=== PATIENT | female | born 1955 | race Caucasian/White ===

== ENCOUNTER 2017-05-10 22:14 | Emergency (ER) | payer OTHER ==
[2017-05-10 22:28] VITALS: RESP 18
[2017-05-10] MEDS ORDERED: ENALAPRILAT 1.25 MG/ML 1 ML VIAL IVP STA (23:31)
[2017-05-10] MEDS ORDERED: SODIUM CHLORIDE 0.9% 1,000 ML IV STA (23:31)
--- NOTE | 2017-05-10 23:49 | ED ---
Recheck HPI - General Chief Complaint: Recheck/Abnormal Lab/Rx Stated Complaint: HYPERTENSION Time Seen by Provider: 05/10/17 22:55 Source: patient, RN notes reviewed Mode of arrival: ambulatory Limitations: no limitations - History of Present Illness Initial Comments: 62-year-old female presents emergency Department chief complaint of hypertension. Patient states that she suffers from high blood pressure. She denies that her blood pressure type pain that concerns her. Patient states she is dull ache at the top of her head. Patient states been continuous throughout the day just gradually started and it concerned her and with her blood pressure she became more concerned. Patient states she's had no nausea vomiting. Patient denies any fever or chills. Patient states she has had a history of high blood pressure before. Patient states that she normally takes MEDICATION does not have any issues. They're concerned due to the blood pressure reading she was seen at home so she thought that they should be evaluated.Patient denies any recent fever, chills, shortness of breath, chest pain, back pain, abdominal pain, nausea vomiting, numbness or tingling, dysuria or hematuria, constipation or diarrhea, headaches or visual changes, or any other current symptoms. - Related Data Home Medications Medication Instructions Recorded Confirmed Bisoprolol-Hctz 10-6.25 mg [Ziac 1 tab PO DAILY 05/10/17 05/10/17 10-6.25] Calcium Carbonate [Calcium] 600 mg PO DAILY 05/10/17 05/10/17 L.acidoph,Paracasei, B.lactis 1 cap PO DAILY 05/10/17 05/10/17 [Probiotic] Multivitamins, Thera [Multivitamin 1 tab PO DAILY 05/10/17 05/10/17 (formulary)] Sertraline [Zoloft] 100 mg PO DAILY 05/10/17 05/10/17 Allergies Allergy/AdvReac Type Severity Reaction Status Date / Time No Known Allergies Allergy Verified 05/10/17 23:08 Review of Systems ROS Statement: Those systems with pertinent positive or pertinent negative responses have been documented in the HPI. ROS Other: All systems not noted in ROS Statement are negative. Past Medical History Past Medical History: Hypertension History of Any Multi-Drug Resistant Organisms: None Reported Past Surgical History: Tubal Ligation Past Psychological History: Anxiety, Depression Smoking Status: Never smoker Past Alcohol Use History: None Reported Past Drug Use History: None Reported General Exam - General Exam Comments Initial Comments: General: The patient is awake and alert, in no distress, and does not appear acutely ill. Eye: Pupils are equal, round and reactive to light, extra-ocular movements are intact; there is normal conjunctiva bilaterally. No signs of icterus. Ears, nose, mouth and throat: There are moist mucous membranes and no oral lesions. Neck: The neck is supple, there is no tenderness. Cardiovascular: There is a regular rate and rhythm. No murmur, rub or gallop is appreciated. Respiratory: Lungs are clear to auscultation, respirations are non-labored, breath sounds are equal. No wheezes, stridor, rales, or rhonchi. Gastrointestinal: Soft, non-distended, non-tender abdomen without masses or organomegaly noted. There is no rebound or guarding present. No CVA tenderness. Bowel sounds are unremarkable. Back: There is no tenderness to palpation in the midline. There is no obvious deformity. No rashes noted. Musculoskeletal: Normal ROM, no tenderness, There is no pedal edema. There is no calf tenderness or swelling. Sensation intact. Pulses equal bilaterally 2+. Neurological: CN II-XII intact, There are no obvious motor or sensory deficits. Coordination appears grossly intact. Speech is normal. Skin: Skin is warm and dry and no rashes or lesions are noted. Psychiatric: Cooperative, appropriate mood & affect, normal judgment. Limitations: no limitations Course Vital Signs 05/10/17 05/10/17 05/10/17 22:23 23:14 23:46 Temperature 99.9 F H Pulse Rate 68 65 64 Respiratory 18 18 18 Rate Blood Pressure 179/85 190/90 171/79 O2 Sat by Pulse 99 100 96 Oximetry 05/11/17 00:36 Temperature Pulse Rate 65 Respiratory 18 Rate Blood Pressure 172/87 O2 Sat by Pulse 96 Oximetry Medical Decision Making - Medical Decision Making 62-year-old female presents emergency department with chief complaint of hypertension with headache. At this time patient's further history is seemed that there was a history of may be hydrocephalus in the past however she never followed up on it she never had a retention any symptoms with it. At this time due to the patient's CAT scan findings fact that she has no neurologist we discussed that we would like her to be evaluated by neurosurgery. We discussed we will transfer to the [facility] we did test the case with them and they do agree to transfer. We will chest the patient for further evaluation. Patient is in agreement with the plan. - Lab Data Result diagrams: 05/10/17 23:45 05/10/17 23:45 Lab Results 05/10/17 05/10/17 05/10/17 Range/Units 23:45 23:45 23:45 WBC 16.4 H (3.8-10.6) k/uL RBC 4.54 (3.80-5.40) m/uL Hgb 14.2 (11.4-16.0) gm/dL Hct 38.0 (34.0-46.0) % MCV 83.8 (80.0-100.0) fL MCH 31.3 (25.0-35.0) pg MCHC 37.3 H (31.0-37.0) g/dL RDW 13.5 (11.5-15.5) % Plt Count 215 (150-450) k/uL Neutrophils % 83 % Lymphocytes % 12 % Monocytes % 3 % Eosinophils % 1 % Basophils % 0 % Neutrophils # 13.6 H (1.3-7.7) k/uL Lymphocytes # 2.0 (1.0-4.8) k/uL Monocytes # 0.6 (0-1.0) k/uL Eosinophils # 0.1 (0-0.7) k/uL Basophils # 0.0 (0-0.2) k/uL Sodium 141 (137-145) mmol/L Potassium 3.5 (3.5-5.1) mmol/L Chloride 102 (98-107) mmol/L Carbon Dioxide 25 (22-30) mmol/L Anion Gap 14 mmol/L BUN 15 (7-17) mg/dL Creatinine 0.90 (0.52-1.04) mg/dL Est GFR (MDRD) Af Amer >60 (>60 ml/min/1.73 sqM) Est GFR (MDRD) Non-Af >60 (>60 ml/min/1.73 sqM) Glucose 128 H (74-99) mg/dL Calcium 9.5 (8.4-10.2) mg/dL Total Bilirubin 0.4 (0.2-1.3) mg/dL AST 18 (14-36) U/L ALT 31 (9-52) U/L Alkaline Phosphatase 68 (38-126) U/L Total Protein 6.3 (6.3-8.2) g/dL Albumin 4.1 (3.5-5.0) g/dL Urine Color Yellow Urine Appearance Turbid H (Clear) Urine pH 8.0 (5.0-8.0) Ur Specific [place] 1.015 (1.001-1.035) Urine Protein Negative (Negative) Urine Glucose (UA) Negative (Negative) Urine Ketones Negative (Negative) Urine Blood Negative (Negative) Urine Nitrite Negative (Negative) Urine Bilirubin Negative (Negative) Urine Urobilinogen <2.0 (<2.0) mg/dL Ur Leukocyte Esterase Small H (Negative) Urine WBC 5 (0-5) /hpf Urine WBC Clumps Rare H (None) /hpf Ur Squamous Epith Cells 1 (0-4) /hpf Amorphous Sediment Moderate H (None) /hpf Urine Mucus Rare H (None) /hpf - Radiology Data Radiology results: report reviewed, image reviewed Disposition Clinical Impression: Hydrocephalus in adult, Hypertension Disposition: OTHER INSTITUTION NOT DEFINED Referrals: Michel Peres MD [Primary Care Provider] - 1-2 days Time of Disposition: 00:59 - Out of Hospital Transfer - Req. Specs Out of Hospital Transfer - Requested Specifics: Other Emergency Center ([facility])
[2017-05-11 00:05] LABS: Basophils % (A) 0 %; CH 30.3; CHCM 36.4; Eosinophils # (A) 0.1 k/uL (0-0.7); Eosinophils % (A) 1 %; HDW 2.83; HGB 14.2 gm/dL (11.4-16.0); Luc # (Auto) 0.15; Luc % (Auto) 1; Lymphocytes % (A) 12 %; MCH 31.3 pg (25.0-35.0); MCHC 37.3 g/dL (31.0-37.0); MCV 83.8 fL (80.0-100.0); Mean Platelet Volume 7.9; Monocytes # (A) 0.6 k/uL (0-1.0); Monocytes % (A) 3 %; Neutrophils # (A) 13.6 k/uL (1.3-7.7); Neutrophils % (A) 83 %; RBC 4.54 m/uL (3.80-5.40); RDW 13.5 % (11.5-15.5); WBC 16.4 k/uL (3.8-10.6); WBC (Perox) 15.29
[2017-05-11 00:13] LABS: Amorphous Sediment,Urine Moderate /hpf; Appearance,Urine Turbid (Clear); Bilirubin,Urine Negative (Negative); Glucose,Urine (UA) Negative (Negative); Ketones,Urine Negative (Negative); Leukocyte Esterase,Urine Small (Negative); Mucus,Urine Rare /hpf; Nitrite,Urine Negative (Negative); Particle Count 9494; Protein,Urine Negative (Negative); Specific Gravity,Urine 1.015 (1.001-1.035); Squamous Epithelial Cell,Urine 1 /hpf (0-4); UA Billing (MACRO vs. MICRO) MICRO; Urobilinogen,Urine <2.0 mg/dL (<2.0); WBC,Urine 5 /hpf (0-5)
[2017-05-11 00:22] LABS: ALT 31 U/L (9-52); AST 18 U/L (14-36); Alkaline Phosphatase 68 U/L (38-126); Anion Gap 14 mmol/L; Blood Urea Nitrogen 15 mg/dL (7-17); Calcium 9.5 mg/dL (8.4-10.2); Carbon Dioxide 25 mmol/L (22-30); Chloride 102 mmol/L (98-107); Glucose 128 mg/dL (74-99); Non-African American GFR(MDRD) >60 (>60 ml/min/1.73 sqM); Potassium 3.5 mmol/L (3.5-5.1); Sodium 141 mmol/L (137-145); Total Bilirubin 0.4 mg/dL (0.2-1.3); Total Protein 6.3 g/dL (6.3-8.2)
--- NOTE | 2017-05-11 00:25 | CT ---
EXAM: CT Head Without Intravenous Contrast CLINICAL HISTORY: Reason: Pain TECHNIQUE: Axial computed tomography images of the head/brain without intravenous contrast. CTDI is 57.40 mGy and DLP is 97 8.20 mGy-cm. This CT exam was performed using one or more of the following dose reduction techniques: automated exposure control, adjustment of the mA and/or kV according to patient size, and/or use of iterative reconstruction technique. COMPARISON: None. FINDINGS: Brain: Effacement of the sulci secondary to the below mentioned findings. No hemorrhage. No significant white matter disease. No edema. Ventricles: Mild/moderate enlargement of the bilateral lateral ventricles and third ventricle with periventricular hypodensities. Constellation of findings are suggestive of hydrocephalus with mild transependymal leakage of CSF. Bones/joints: Unremarkable. No acute fracture. Soft tissues: Unremarkable. Sinuses: Unremarkable as visualized. No acute sinusitis. Mastoid air cells: Unremarkable as visualized. No mastoid effusion. IMPRESSION: Mild/moderate enlargement of the bilateral lateral ventricles and third ventricle with periventricular hypodensities and effacement of the cortical sulci. Constellation of findings are suggestive of hydrocephalus with mild transependymal leakage of CSF. MRI of the brain is recommended for further evaluation.
[2017-05-11 01:29] VITALS: BP 193/90; PULSE 70; TEMP 98
== END 2017-05-11 01:33 | disposition short-term general hospital (02) ==
LOC: EC 22:14
DX: G91.9 Hydrocephalus, unspecified (principal); I10 Essential (primary) hypertension; F32.9 Major depressive disorder, single episode, unspecified; Z79.899 Other long term (current) drug therapy
CPT/HCPCS: 36415; 70450; 80053; 81001; 85025; 96361; 96374; 99284

== ENCOUNTER → 2017-06-21 | Outpatient (CLI) | payer OTHER ==
--- NOTE | 2017-06-21 12:48 | XR ---
EXAMINATION TYPE: XR Hip Complete LT DATE OF EXAM: 06/21/2017 CLINICAL HISTORY: pain TECHNIQUE: AP and frogleg views of the left hip are obtained. COMPARISON: None. FINDINGS: There is no acute fracture/dislocation evident. The joint space appears within normal li mits. The overlying soft tissue appears unremarkable. IMPRESSION: 1. There is no acute fracture or dislocation.ICD 10 NO FRACTURE, INITIAL EVALUATION
--- NOTE | 2017-06-21 12:50 | XR ---
EXAMINATION TYPE: XR lumbar spine 2 or 3V DATE OF EXAM: 06/21/2017 CLINICAL HISTORY: pain TECHNIQUE: Three views of the lumbar spine are submitted. COMPARISON: None. FINDINGS: There are 5 lumbar type vertebral bodies identified. The lumbar spine shows satisfactory alignment w ithout evidence of acute fracture or dislocation. Vertebral body heights are within normal limits. Mild degenerative disc space narrowing. The overlying soft tissue appears unremarkable. IMPRESSION: No acute fracture or dislocation is seen in the lumbar spine. ICD 10 NO FRACTURE, INITIAL EVALUATION
== END | disposition home or self-care (01) ==
LOC: RADXRMAIN 12:15
PROVIDERS: ATTEND Family Medicine
DX: M25.552 Pain in left hip (principal); M54.5 Low back pain; M54.32 Sciatica, left side
CPT/HCPCS: 72100; 73502

== ENCOUNTER 2018-09-01 21:19 | Emergency (ER) | payer MEDICARE, OTHER ==
[2018-09-01 21:24] VITALS: RESP 18
[2018-09-01] MEDS ORDERED: SODIUM CHLORIDE 0.9% 1,000 ML IV STA (22:07)
--- NOTE | 2018-09-01 22:29 | ED ---
Neuro HPI - General Chief Complaint: Neuro Symptoms/Deficit Stated Complaint: left hand tingling Time Seen by Provider: 09/01/18 21:45 Source: patient, RN notes reviewed Mode of arrival: ambulatory Limitations: no limitations - History of Present Illness Is the patient presenting with stroke symptoms?: No Initial Comments: This is a 63-year-old female who presents with complaints of the onset around 2100 hrs. tonight of left arm and hand numbness and no weakness noted fevers chills nausea vomiting sweats no prior history of strokes she'll say she had somewhat of a headache. Modifying factors at this time - Related Data Home Medications: Home Medications Medication Instructions Recorded Confirmed Bisoprolol-Hctz 10-6.25 mg [Ziac 1 tab PO DAILY 05/10/17 05/10/17 10-6.25] Calcium Carbonate [Calcium] 600 mg PO DAILY 05/10/17 05/10/17 L.acidoph,Paracasei, B.lactis 1 cap PO DAILY 05/10/17 05/10/17 [Probiotic] Multivitamins, Thera [Multivitamin 1 tab PO DAILY 05/10/17 05/10/17 (formulary)] Sertraline [Zoloft] 100 mg PO DAILY 05/10/17 05/10/17 Previous Rx's Medication Instructions Recorded Sertraline [Zoloft] 100 mg PO DAILY #90 tab 09/02/18 Allergies/Adverse Reactions: Allergies Allergy/AdvReac Type Severity Reaction Status Date / Time No Known Allergies Allergy Verified 09/01/18 21:24 Review of Systems ROS Statement: Those systems with pertinent positive or pertinent negative responses have been documented in the HPI. ROS Other: All systems not noted in ROS Statement are negative. General Exam - General Exam Comments Initial Comments: This is a well-developed well-nourished awake alert oriented 3 female Limitations: no limitations General appearance: alert, in no apparent distress Head exam: Present: atraumatic, normocephalic, normal inspection Eye exam: Present: normal appearance, PERRL, EOMI. Absent: scleral icterus, conjunctival injection, periorbital swelling ENT exam: Present: normal exam, mucous membranes moist Neck exam: Present: normal inspection. Absent: tenderness, meningismus, lymphadenopathy Respiratory exam: Present: normal lung sounds bilaterally. Absent: respiratory distress, wheezes, rales, rhonchi, stridor Cardiovascular Exam: Present: regular rate, normal rhythm, normal heart sounds. Absent: systolic murmur, diastolic murmur, rubs, gallop, clicks GI/Abdominal exam: Present: soft, normal bowel sounds. Absent: distended, tenderness, guarding, rebound, rigid Extremities exam: Present: normal inspection, full ROM, normal capillary refill. Absent: tenderness, pedal edema, joint swelling, calf tenderness Back exam: Present: normal inspection Neurological exam: Present: alert, oriented X3, CN II-XII intact, motor sensory deficit (Some equivocal sensory loss to light touch over the left hand dorsal aspect and left upper extremity compared to the right no motor deficits no vascular deficits.), reflexes normal Psychiatric exam: Present: normal affect, normal mood Skin exam: Present: warm, dry, intact, normal color. Absent: rash Stroke MDM - Lab Data Result diagrams: 09/01/18 21:55 09/01/18 21:55 Lab Results 09/01/18 09/01/18 09/01/18 Range/Units 21:55 21:55 21:55 WBC 7.3 (3.8-10.6) k/uL RBC 4.99 (3.80-5.40) m/uL Hgb 14.4 (11.4-16.0) gm/dL Hct 42.8 (34.0-46.0) % MCV 85.8 (80.0-100.0) fL MCH 28.9 (25.0-35.0) pg MCHC 33.7 (31.0-37.0) g/dL RDW 13.4 (11.5-15.5) % Plt Count 237 (150-450) k/uL Neutrophils % 64 % Lymphocytes % 29 % Monocytes % 4 % Eosinophils % 1 % Basophils % 0 % Neutrophils # 4.7 (1.3-7.7) k/uL Lymphocytes # 2.1 (1.0-4.8) k/uL Monocytes # 0.3 (0-1.0) k/uL Eosinophils # 0.1 (0-0.7) k/uL Basophils # 0.0 (0-0.2) k/uL PT (9.0-12.0) sec INR (<1.2) APTT (22.0-30.0) sec Sodium 141 (137-145) mmol/L Potassium 4.1 (3.5-5.1) mmol/L Chloride 104 (98-107) mmol/L Carbon Dioxide 28 (22-30) mmol/L Anion Gap 9 mmol/L BUN 13 (7-17) mg/dL Creatinine 0.78 (0.52-1.04) mg/dL Est GFR (CKD-EPI)AfAm >90 (>60 ml/min/1.73 sqM) Est GFR (CKD-EPI)NonAf 80 (>60 ml/min/1.73 sqM) Glucose 133 H (74-99) mg/dL Calcium 9.8 (8.4-10.2) mg/dL Magnesium 2.1 (1.6-2.3) mg/dL Total Bilirubin 0.3 (0.2-1.3) mg/dL AST 16 (14-36) U/L ALT 18 (9-52) U/L Alkaline Phosphatase 58 (38-126) U/L Total Creatine Kinase 26 L (30-135) U/L CK-MB (CK-2) 0.5 (0.0-2.4) ng/mL CK-MB (CK-2) Rel Index 1.9 Troponin I <0.012 (0.000-0.034) ng/mL Total Protein 6.7 (6.3-8.2) g/dL Albumin 4.0 (3.5-5.0) g/dL TSH 1.510 (0.465-4.680) mIU/L 09/01/18 Range/Units 21:55 WBC (3.8-10.6) k/uL RBC (3.80-5.40) m/uL Hgb (11.4-16.0) gm/dL Hct (34.0-46.0) % MCV (80.0-100.0) fL MCH (25.0-35.0) pg MCHC (31.0-37.0) g/dL RDW (11.5-15.5) % Plt Count (150-450) k/uL Neutrophils % % Lymphocytes % % Monocytes % % Eosinophils % % Basophils % % Neutrophils # (1.3-7.7) k/uL Lymphocytes # (1.0-4.8) k/uL Monocytes # (0-1.0) k/uL Eosinophils # (0-0.7) k/uL Basophils # (0-0.2) k/uL PT 10.2 (9.0-12.0) sec INR 1.0 (<1.2) APTT 22.6 (22.0-30.0) sec Sodium (137-145) mmol/L Potassium (3.5-5.1) mmol/L Chloride (98-107) mmol/L Carbon Dioxide (22-30) mmol/L Anion Gap mmol/L BUN (7-17) mg/dL Creatinine (0.52-1.04) mg/dL Est GFR (CKD-EPI)AfAm (>60 ml/min/1.73 sqM) Est GFR (CKD-EPI)NonAf (>60 ml/min/1.73 sqM) Glucose (74-99) mg/dL Calcium (8.4-10.2) mg/dL Magnesium (1.6-2.3) mg/dL Total Bilirubin (0.2-1.3) mg/dL AST (14-36) U/L ALT (9-52) U/L Alkaline Phosphatase (38-126) U/L Total Creatine Kinase (30-135) U/L CK-MB (CK-2) (0.0-2.4) ng/mL CK-MB (CK-2) Rel Index Troponin I (0.000-0.034) ng/mL Total Protein (6.3-8.2) g/dL Albumin (3.5-5.0) g/dL TSH (0.465-4.680) mIU/L - NIH Stroke Scale 1a. Level of Consciousness: (0) alert 1b. LOC Questions: (0) answers correctly 1c. LOC Commands: (0) performs tasks correctly 2. Best Gaze: (0) normal 3. Visual: (0) no visual loss 4. Facial Palsy: (0) normal symmetrical movement 5a. Motor Arm Left: (0) no drift 5b. Motor Arm Right: (0) no drift 6a. Motor Leg Left: (0) no drift 6b. Motor Leg Right: (0) no drift 7. Limb Ataxia: (0) absent 8. Sensory: (1) mild/moderate sensory loss 9. Best Language: (0) no aphasia 10. Dysarthria: (0) normal 11. Extinction/Inattention: (0) no abnormality - EKG Data -: EKG Interpreted by Me EKG shows normal: sinus rhythm ([place] [address] QRS duration 86 QT since QTC 458/[address] configuration possible left atrial enlargement) Past Medical History Past Medical History: Hypertension Additional Past Medical History / Comment(s): Hydrocephalus History of Any Multi-Drug Resistant Organisms: None Reported Past Surgical History: Tubal Ligation Past Psychological History: Anxiety, Depression Smoking Status: Never smoker Past Alcohol Use History: None Reported Past Drug Use History: None Reported Course Vital Signs 09/01/18 09/01/18 09/01/18 21:22 21:40 22:45 Temperature 98.9 F Pulse Rate 58 L 54 L Pulse Rate [ 55 L Clinical Researcher ] Respiratory 18 18 Rate Blood Pressure 154/82 147/84 O2 Sat by Pulse 97 94 L Oximetry - Reevaluation(s) Reevaluation #1: 09/01/18 23:23 Reevaluation patient reveals no change in her symptoms. Reevaluation #2: 09/02/18 00:01 Reevaluation patient reveals no change. The CAT scan reveals stable hydrocephalus from 2017. I don't discussing and reexamining the patient the findings this is likely radicular the patient's numbness is to the left hand and distal left forearm. After long discussion she would like to go home she does take a baby aspirin every day she would like to see Dr. Perez from neurology she also believes this is from stopping Zoloft cold turkey she was not able to get her prescription refilled. She is currently looking for a new physician. I will refill her Zoloft for 90 days supply. Disposition Clinical Impression: Paresthesia of arm, Cervical radiculopathy, Hydrocephalus Disposition: HOME SELF-CARE Condition: Good Instructions: Paresthesia (ED), Cervical Radiculopathy (ED), Hydrocephalus (DC) Prescriptions: Sertraline [Zoloft] 100 mg PO DAILY #90 tab Is patient prescribed a controlled substance at d/c from ED?: No Referrals: Brenden Reyes Jr, DO [Primary Care Provider] - 1-2 days Martin Perez DO [STAFF PHYSICIAN] - 1-2 days
[2018-09-01 22:33] LABS: Basophils % (A) 0 %; Eosinophils # (A) 0.1 k/uL (0-0.7); Eosinophils % (A) 1 %; HCT 42.8 % (34.0-46.0); HGB 14.4 gm/dL (11.4-16.0); Lymphocytes # (A) 2.1 k/uL (1.0-4.8); Lymphocytes % (A) 29 %; MCH 28.9 pg (25.0-35.0); MCHC 33.7 g/dL (31.0-37.0); MCV 85.8 fL (80.0-100.0); Mean Platelet Volume 7.9; Monocytes # (A) 0.3 k/uL (0-1.0); Monocytes % (A) 4 %; Neutrophils # (A) 4.7 k/uL (1.3-7.7); Neutrophils % (A) 64 %; Platelet Count 237 k/uL (150-450); RBC 4.99 m/uL (3.80-5.40); RDW 13.4 % (11.5-15.5); WBC 7.3 k/uL (3.8-10.6)
[2018-09-01 22:40] LABS: Partial Thromboplastin Time 22.6 sec (22.0-30.0); Prothrombin Time 10.2 sec (9.0-12.0)
--- NOTE | 2018-09-01 22:46 | CT ---
EXAMINATION TYPE: CT brain naveen onofre con DATE OF EXAM: 09/01/2018 COMPARISON: CT brain 05/10/2017 HISTORY: Left arm tingling CT DLP: 1040.8 mGycm Automated exposure control for dose reduction was used. TECHNIQUE: CT scan of the head and cervical spine are performed without contrast. FINDINGS: There is moderate hydrocephalus. There is enlargement of lateral third and fourth ventric les. There is no significant periventricular edema. There is no cerebral atrophy. There is no midline shift. There is no sign of intracranial hemorrhage. The calvarium appears intact. There is mild straightening of the cervical vertebra. Disc spaces are fairly normal. There is minor s purring of the endplates from C4 to C6. Facet joints appear intact. The skull base is intact. There i s no evidence of cervical spine fracture. IMPRESSION: There is moderate hydrocephalus unchanged compared to old CT scan. No acute intracranial abnormality. No obstructing lesion seen. Minor degenerative changes in the cervical spine. Otherwise negative exam.
--- NOTE | 2018-09-01 22:48 | XR ---
EXAMINATION TYPE: XR chest 2V DATE OF EXAM: 09/01/2018 COMPARISON: NONE HISTORY: Headache arm numbness TECHNIQUE: Frontal and lateral views of the chest are obtained. FINDINGS: There is some linear density at the left lung base. This is in the lingula left upper lob e. The other lung trejo are clear. There is no heart failure. There are chest leads. Heart size is n ormal. There is no pleural effusion. Bony thorax appears intact. IMPRESSION: There is some mild atelectasis in the lingula left upper lobe. Normal heart.
[2018-09-01 22:50] LABS: Creatine Kinase 26 U/L (30-135)
[2018-09-01 22:52] LABS: ALT 18 U/L (9-52); AST 16 U/L (14-36); Alkaline Phosphatase 58 U/L (38-126); Anion Gap 9 mmol/L; Blood Urea Nitrogen 13 mg/dL (7-17); Calcium 9.8 mg/dL (8.4-10.2); Carbon Dioxide 28 mmol/L (22-30); Chloride 104 mmol/L (98-107); Glucose 133 mg/dL (74-99); Magnesium 2.1 mg/dL (1.6-2.3); Potassium 4.1 mmol/L (3.5-5.1); Sodium 141 mmol/L (137-145); Total Bilirubin 0.3 mg/dL (0.2-1.3); Total Protein 6.7 g/dL (6.3-8.2)
[2018-09-01] MEDS ORDERED: ASPIRIN 81 MG PO STA (23:02)
[2018-09-01 23:03] LABS: Creatine Kinase MB 0.5 ng/mL (0.0-2.4); Troponin I <0.012 ng/mL (0.000-0.034)
[2018-09-01] MEDS ORDERED: KETOROLAC 30 MG/ML 1 ML VIAL IVP STA (23:22)
[2018-09-02 00:07] VITALS: BP 136/90; PULSE 56; TEMP 98.4
== END 2018-09-02 00:15 | disposition home or self-care (01) ==
LOC: EC 21:19
DX: M54.12 Radiculopathy, cervical region (principal); G91.9 Hydrocephalus, unspecified; I10 Essential (primary) hypertension; F41.9 Anxiety disorder, unspecified; F32.9 Major depressive disorder, single episode, unspecified; Z79.899 Other long term (current) drug therapy
CPT/HCPCS: 36415; 93005; 80053; 84443; 82550; 82553; 83735; 84484; 85025; 85610; 85730; 71046; 72125; 70450; 99284; 96374; 96361; J1885

== ENCOUNTER 2018-09-02 14:17 | Emergency (ER) | payer MEDICARE, OTHER ==
--- NOTE | 2018-09-02 15:15 | ED ---
General Adult HPI - General Chief complaint: Neuro Symptoms/Deficit Stated complaint: Left Arm numbness Time Seen by Provider: 09/02/18 14:41 Source: patient, RN notes reviewed, old records reviewed Mode of arrival: ambulatory Limitations: no limitations - History of Present Illness Initial comments: 63-year-old female presenting for evaluation of left hand numbness. Patient's symptoms have been present for the past 20 hours. She was seen in the emergency department yesterday with these symptoms. ER stroke workup was obtained at that time. Patient was given the option for admission and further stroke workup. She declined. She woke this morning with persistent symptoms. Unchanged. Have not progressed. She believes she may have some facial numbness as well. No facial droop. No focal weakness. No chest pain. No abdominal pain. No headache. - Related Data Home Medications Medication Instructions Recorded Confirmed Bisoprolol-Hctz 10-6.25 mg [Ziac 1 tab PO DAILY 05/10/17 05/10/17 10-6.25] Calcium Carbonate [Calcium] 600 mg PO DAILY 05/10/17 05/10/17 L.acidoph,Paracasei, B.lactis 1 cap PO DAILY 05/10/17 05/10/17 [Probiotic] Multivitamins, Thera [Multivitamin 1 tab PO DAILY 05/10/17 05/10/17 (formulary)] Sertraline [Zoloft] 100 mg PO DAILY 05/10/17 05/10/17 Previous Rx's Medication Instructions Recorded Sertraline [Zoloft] 100 mg PO DAILY #90 tab 09/02/18 Allergies Allergy/AdvReac Type Severity Reaction Status Date / Time No Known Allergies Allergy Verified 09/02/18 14:30 Review of Systems ROS Statement: Those systems with pertinent positive or pertinent negative responses have been documented in the HPI. ROS Other: All systems not noted in ROS Statement are negative. Past Medical History Past Medical History: Hypertension Additional Past Medical History / Comment(s): Hydrocephalus History of Any Multi-Drug Resistant Organisms: None Reported Past Surgical History: Tubal Ligation Past Psychological History: Anxiety, Depression Smoking Status: Never smoker Past Alcohol Use History: None Reported Past Drug Use History: None Reported General Exam Limitations: no limitations General appearance: alert, in no apparent distress Head exam: Present: atraumatic, normocephalic Eye exam: Present: normal appearance, PERRL, EOMI ENT exam: Present: normal exam Neck exam: Present: normal inspection, full ROM. Absent: tenderness, meningismus Respiratory exam: Present: normal lung sounds bilaterally. Absent: respiratory distress, wheezes Cardiovascular Exam: Present: regular rate, normal rhythm GI/Abdominal exam: Present: soft. Absent: distended, tenderness, guarding Extremities exam: Present: normal inspection, normal capillary refill. Absent: pedal edema Neurological exam: Present: alert, oriented X3, CN II-XII intact. Absent: motor sensory deficit (NIH 0, although patient has complained of numbness, there is no sensory deficit. On exam) Psychiatric exam: Present: normal affect, normal mood Skin exam: Present: warm, dry, intact. Absent: cyanosis, diaphoretic Course Vital Signs 09/02/18 14:28 Temperature 98.2 F Pulse Rate 54 L Respiratory 16 Rate Blood Pressure 158/76 O2 Sat by Pulse 96 Oximetry Medical Decision Making - Medical Decision Making 63-year-old female with persistent left hand numbness. Patient is seeking second evaluation because she was told there may be some time before she can get a neurology appointment. Patient has NIH is 0. She is complaining of numbness but there is no perceived sensory deficit on exam. No weakness. Normal gait. No ataxia. Workup from yesterday is reviewed, normal CBC, normal CMP, negative troponin, negative chest x-ray, head CT which shows hydrocephalus unchanged from prior, no intracranial hemorrhage. Initial plan was to admit the patient for stroke workup, she is uncertain if this is what she wants to do. I did discuss the case with her primary care physician Dr. Reyes. He states he is happy to arrange outpatient stroke workup. I did relate this information the patient, she is glad to accept, she does not want admission for further workup. She would rather continue as an outpatient with her primary care physician and neurology. She is very eager for discharge. She will continue aspirin and will return with any change or worsening of her symptoms. Disposition Clinical Impression: Paresthesia of arm, Cervical radiculopathy, Hydrocephalus Disposition: HOME SELF-CARE Condition: Good Instructions: Cervical Radiculopathy (ED), Paresthesia (ED) Additional Instructions: Please continue full-strength aspirin daily. Return with worsening or changing symptoms. Follow-up with primary care today. Is patient prescribed a controlled substance at d/c from ED?: No Referrals: Brenden Reyse Jr, [Primary Care Provider] - 1-2 days Time of Disposition: 15:14
[2018-09-02 15:29] VITALS: BP 140/78; PULSE 56; RESP 18; TEMP 98.3
== END 2018-09-02 15:28 | disposition home or self-care (01) ==
LOC: EC 14:17
DX: M54.12 Radiculopathy, cervical region (principal); G91.9 Hydrocephalus, unspecified; I10 Essential (primary) hypertension; F32.9 Major depressive disorder, single episode, unspecified; F41.9 Anxiety disorder, unspecified; Z79.899 Other long term (current) drug therapy; Z53.29 Procedure and treatment not carried out because of patient's decision for other reasons
CPT/HCPCS: 99284

== ENCOUNTER → 2019-09-11 | Outpatient (CLI) | payer MEDICARE, OTHER ==
--- NOTE | 2019-09-11 18:06 | US ---
EXAMINATION TYPE: US venous doppler duplex LE LT DATE OF EXAM: 09/11/2019 5:56 PM COMPARISON: NONE CLINICAL HISTORY: M79.662 Pain in L leg. SIDE PERFORMED: Left TECHNIQUE: The lower extremity deep venous system is examined utilizing real time linear array sonog jorge alberto with graded compression, doppler sonography and color-flow sonography. VESSELS IMAGED: External Iliac Vein (EIV) Common Femoral Vein Deep Femoral Vein Greater Saphenous Vein * Femoral Vein Popliteal Vein Small Saphenous Vein * Proximal Calf Veins (* superficial vessels) Left Leg: Negative for DVT IMPRESSION: No evidence of deep venous thrombosis in the left leg.
== END | disposition home or self-care (01) ==
LOC: RADUSMAIN 17:26
PROVIDERS: ATTEND Family Medicine
DX: M79.662 Pain in left lower leg (principal); R22.42 Localized swelling, mass and lump, left lower limb

== ENCOUNTER 2020-09-01 16:22 | Emergency (ER) | payer MEDICARE, OTHER ==
[2020-09-01 16:33] VITALS: TEMP 98.9
[2020-09-01] MEDS ORDERED: ALPRAZolam 0.25 MG TAB PO STA (17:00)
[2020-09-01 17:17] VITALS: RESP 18
--- NOTE | 2020-09-01 18:14 | ED ---
Recheck HPI - General Chief Complaint: Recheck/Abnormal Lab/Rx Stated Complaint: HTN Time Seen by Provider: 09/01/20 16:39 Source: patient Mode of arrival: EMS Limitations: no limitations - History of Present Illness Initial Comments: Patient is a 65-year-old female presenting to the emergency Department with complaints of elevated blood pressure as well as having a mild headache. She does admit that she has been under a lot of stress over the last few months taking care of her dying mother. Her mother did recently about 1- 1/2 weeks ago and she continues to feel depressed and stressed as well as very anxious. Patient states she has been visiting with her PCPs office because her blood pressures have been elevated in the 180s. They did recently start her on lisinapril just a few days ago. They also recommend her to take Xanax as needed for acute anxiety however she was not able to pick this up yet. Patient admits to history of hydrocephalus, has not had this checked and many many years. She denies feeling lightheaded, dizzy she denies chest pain, shortness of breath, abdominal pain, nausea, vomiting. She states she does have a very mild headache but states she's had this on and off for weeks now. She denies any visual changes. She has no further complaints at this time. Upon arrival to the ER, patient's blood pressure is 186/85, rest of vitals were normal. - Related Data Home Medications Medication Instructions Recorded Confirmed Bisoprolol-Hctz 10-6.25 mg [Ziac 1 tab PO DAILY 05/10/17 09/02/18 10-6.25] Multivitamins, Thera [Multivitamin 1 tab PO DAILY 05/10/17 09/02/18 (formulary)] Sertraline [Zoloft] 100 mg PO DAILY 05/10/17 09/02/18 Artificial Tears-Hypromellose 1 drop BOTH EYES QID 09/02/18 09/02/18 [Artificial Tear Drops] Aspirin 325 mg PO DAILY 09/02/18 09/02/18 Calcium Citrate 250 mg PO DAILY 09/02/18 09/02/18 Fluticasone Nasal [place] [Flonase 1 spray EA NOSTRIL DAILY 09/02/18 09/02/18 Nasal [place]] Allergies Allergy/AdvReac Type Severity Reaction Status Date / Time No Known Allergies Allergy Verified 09/01/20 16:34 Review of Systems ROS Statement: Those systems with pertinent positive or pertinent negative responses have been documented in the HPI. ROS Other: All systems not noted in ROS Statement are negative. Past Medical History Past Medical History: Hypertension Additional Past Medical History / Comment(s): Hydrocephalus History of Any Multi-Drug Resistant Organisms: None Reported Past Surgical History: Tubal Ligation Past Psychological History: Anxiety, Depression Smoking Status: Never smoker Past Alcohol Use History: None Reported Past Drug Use History: None Reported General Exam - General Exam Comments Initial Comments: GENERAL: Patient is well-developed and well-nourished. Patient is nontoxic and in no acute distress. HEAD: Atraumatic, normocephalic. EYES: Pupils equal round and reactive to light, extraocular movements intact, sclera anicteric, conjunctiva are normal. Eyelids were unremarkable. ENT: TMs normal, nares patent, oropharynx clear without exudates. Moist mucous membranes. NECK: Normal range of motion, supple without lymphadenopathy or JVD. LUNGS: Unlabored respirations. Breath sounds clear to auscultation bilaterally and equal. No wheezes rales or rhonchi. HEART: Regular rate and rhythm without murmurs, rubs or gallops. ABDOMEN: Soft, nontender, normoactive bowel sounds. No guarding, no rebound. No masses appreciated. : Deferred MUSCULOSKELETAL: Normal extremities with adequate strength and normal range of motion, no pitting or edema. No clubbing or cyanosis. NEUROLOGICAL: Patient is alert and oriented x 3. Motor and sensory are also intact. Cranial nerves II through XII grossly intact. Symmetrical smile. Normal speech, normal gait. PSYCH: Normal mood, normal affect. SKIN: Warm, Dry, normal turgor, no rashes or lesions noted. Limitations: no limitations Course Vital Signs 09/01/20 09/01/20 09/01/20 16:30 16:43 17:16 Temperature 98.9 F Pulse Rate 68 56 L Pulse Rate [ 68 Pulse Oximetery ] Respiratory 16 18 Rate Blood Pressure 186/85 200/92 O2 Sat by Pulse 97 96 Oximetry 09/01/20 18:45 Temperature Pulse Rate 58 L Pulse Rate [ Pulse Oximetery ] Respiratory 18 Rate Blood Pressure 186/77 O2 Sat by Pulse 97 Oximetry Medical Decision Making - Medical Decision Making Patient is a 65-year-old female here for elevated blood pressure today. Patient states in the ambulance her blood pressure was over 200. Upon arrival to the ER her blood pressure is 186/85, rest of vitals are normal. She is complaining of very mild headache, her exam is unremarkable, no acute neuro deficit. I did do a CT of the head secondary to hydrocephalus, this appears stable, no acute intercranial abnormalities. I did give patient a 0.25 of Xanax. Her blood pressures have been remaining about the same, 186/77. Patient does report some improvement, she has been on her phone in the ER. Resting comfortably. I will give patient 0.1 mg of Klonopin as well as another Xanax to take home with her. She states she does have a prescription for that is at the pharmacy however they needed to order the medication. I do recommend she follow up with her PCP. Patient is to return with this plan of care. Strict return parameters were discussed with the patient she verbalized understanding. Case discussed with Dr. Weiss. Disposition Clinical Impression: Hypertension, Headache Disposition: HOME SELF-CARE Condition: Stable Instructions (If sedation given, give patient instructions): Hypertension (ED) Additional Instructions: Please return to the Emergency Department if symptoms worsen or any other concerns. May take the Xanax later tonight for continued anxiety. Follow-up with PCP as discussed. Is patient prescribed a controlled substance at d/c from ED?: No Referrals: Brenden Reyes Jr, [Primary Care Provider] - 1-2 days
[2020-09-01 18:46] VITALS: BP 186/77; PULSE 58
--- NOTE | 2020-09-01 18:50 | CT ---
EXAMINATION TYPE: CT brain wo con DATE OF EXAM: 09/01/2020 COMPARISON: 09/01/2018 INDICATION: MEREDITH, hypertension DLP: 1133.4 mGycm, Automated exposure control for dose reduction was used. CONTRAST: None CT of the brain is performed utilizing 3 mm thick sections through the posterior fossa and 3 mm thick sections through the remaining calvarium. Study is performed within 24 hours of arrival to the hosp ital. No abnormal hyperdensity is present to suggest an acute intracranial hemorrhage. No mass lesion is evident. No acute infarcts are evident. Ventricles are dilated. There is some rounding of the temporal horns. Clinical consideration for norm al pressure hydrocephalus is recommended. Findings however appears stable from comparison of 2018. Paranasal sinuses and mastoid air cells within the [id number] are clear. IMPRESSIONS: 1. Moderate hydrocephalus, stable from 2018. Consider normal pressure hydrocephalus. 2. No acute intracranial process
[2020-09-01] MEDS ORDERED: ALPRAZolam 0.5 MG TAB PO STA (19:35)
[2020-09-01] MEDS ORDERED: cloNIDine HCL 0.1 MG TAB PO STA (19:36)
== END 2020-09-01 19:54 | disposition home or self-care (01) ==
LOC: EC 16:22
DX: I10 Essential (primary) hypertension (principal); R51.9 Headache, unspecified; G91.9 Hydrocephalus, unspecified; F41.9 Anxiety disorder, unspecified; F32.9 Major depressive disorder, single episode, unspecified; Z79.899 Other long term (current) drug therapy; Z79.82 Long term (current) use of aspirin; Z79.51 Long term (current) use of inhaled steroids; Z63.4 Disappearance and death of family member
CPT/HCPCS: 70450; 99284

== ENCOUNTER 2020-10-20 14:42 | Inpatient (IN) | payer MEDICARE ==
[2020-10-20] MEDS ORDERED: KETOROLAC 15 MG/ML 1 ML VIAL IVP STA (15:46)
[2020-10-20] MEDS ORDERED: SODIUM CHLORIDE 0.9% 1,000 ML IV STA ×2 (15:46)
--- NOTE | 2020-10-20 16:00 | ED ---
Back Pain HPI - General Source: patient, RN notes reviewed, old records reviewed Limitations: no limitations <Yessica Hogan - Last Filed: 10/20/20 18:38> <Les Phan - Last Filed: 10/20/20 18:44> - General Chief Complaint: Back Pain/Injury Stated Complaint: Back Pain Time Seen by Provider: 10/20/20 15:12 - History of Present Illness Initial Comments: 65-year-old female presents emergency department today with complaints of back pain as well as lower abdominal pain and concern for possible colon cancer. She reports her mother from colon cancer is month and has a significant family history of colon cancer. She should have a colonoscopy this year and she is due for one S her last was 5 years ago. She states presented there is polyps. This made her concerned about her symptoms and decided come to the ER today. She denies any fevers or chills. She did report a scant amount of blood in her stool one point. (Yessica Hogan) - Related Data Home Medications Medication Instructions Recorded Confirmed Multivitamins, Thera [Multivitamin 1 tab PO DAILY 05/10/17 10/20/20 (formulary)] Sertraline [Zoloft] 100 mg PO DAILY 05/10/17 10/20/20 Bisoprolol Fumarate [Zebeta] 10 mg PO DAILY 09/01/20 10/20/20 Cetirizine HCl 10 mg PO DAILY 09/01/20 10/20/20 Lisinopril [Prinivil] 10 mg PO DAILY@1500 09/01/20 10/20/20 Ibuprofen [Motrin Ib] 600 mg PO Q4-6H PRN 10/20/20 10/20/20 hydroCHLOROthiazide [Hydrodiuril] 25 mg PO DAILY 10/20/20 10/20/20 Allergies Allergy/AdvReac Type Severity Reaction Status Date / Time No Known Allergies Allergy Verified 10/20/20 17:23 Review of Systems ROS Other: All systems not noted in ROS Statement are negative. <Yessica Hogan - Last Filed: 10/20/20 18:38> ROS Other: All systems not noted in ROS Statement are negative. <Les Phan - Last Filed: 10/20/20 18:44> ROS Statement: Those systems with pertinent positive or pertinent negative responses have been documented in the HPI. Past Medical History Past Medical History: Hypertension Additional Past Medical History / Comment(s): Hydrocephalus History of Any Multi-Drug Resistant Organisms: None Reported Past Surgical History: Tubal Ligation Past Psychological History: Anxiety, Depression Smoking Status: Never smoker Past Alcohol Use History: None Reported Past Drug Use History: None Reported <Yessica Hogan - Last Filed: 10/20/20 18:38> General Exam Limitations: no limitations General appearance: alert, in no apparent distress Head exam: Present: atraumatic, normocephalic, normal inspection Eye exam: Present: normal appearance, PERRL, EOMI. Absent: scleral icterus, conjunctival injection, periorbital swelling ENT exam: Present: normal exam, mucous membranes moist Neck exam: Present: normal inspection. Absent: tenderness, meningismus, lymphadenopathy Respiratory exam: Present: normal lung sounds bilaterally. Absent: respiratory distress, wheezes, rales, rhonchi, stridor Cardiovascular Exam: Present: regular rate, normal rhythm, normal heart sounds. Absent: systolic murmur, diastolic murmur, rubs, gallop, clicks GI/Abdominal exam: Present: soft, tenderness (Lower abdominal tenderness and left CVA tenderness noted) Extremities exam: Present: normal inspection, full ROM, normal capillary refill. Absent: tenderness, pedal edema, joint swelling, calf tenderness Back exam: Present: normal inspection Neurological exam: Present: alert, oriented X3, CN II-XII intact Psychiatric exam: Present: normal affect, normal mood <Yessica Hogan - Last Filed: 10/20/20 18:38> - General Exam Comments Initial Comments: Is a 65-year-old female. No distress (Yessica Hogan) Course <Les Phan - Last Filed: 10/20/20 18:44> Vital Signs 10/20/20 10/20/20 10/20/20 14:50 16:11 17:05 Temperature 99.3 F 99.4 F Pulse Rate 86 60 70 Respiratory 20 16 18 Rate Blood Pressure 148/87 166/75 154/84 O2 Sat by Pulse 97 95 97 Oximetry 10/20/20 18:00 Temperature Pulse Rate 73 Respiratory 16 Rate Blood Pressure 125/75 O2 Sat by Pulse 98 Oximetry - Reevaluation(s) Reevaluation #1: 10/20/20 18:42 PA supervision: I did personally evaluate this case patient did present with complaints of back pain is seen radiate up from her low mid back to the upper back and left anterior chest. She did showed evidence of no other symptoms however. He showed evidence of anterolateral ischemia. Additionally CAT scan does show evidence of a adrenal mass on the left. I did discuss this with Dr. Dobbs patient be admitted to evaluate the new EKG changes. Also to address the adrenal mass. Did discuss with the patient and her family that was present. (Les Phan) Medical Decision Making - Lab Data Result diagrams: 10/20/20 15:56 10/20/20 15:56 - Radiology Data Radiology results: report reviewed <Yessica Hogan - Last Filed: 10/20/20 18:38> - Lab Data Result diagrams: 10/20/20 15:56 10/20/20 15:56 <Les Phan - Last Filed: 10/20/20 18:44> - Medical Decision Making Patient 65-year-old female who presents emergency department today with complaints of back pain and lower abdominal pain for the past few weeks. Patient reports she was initially concerned for possibly having colon cancer and is quite anxious about this. She also reports some concern for blood stool. On examination she has some CVA tenderness. Lab work was obtained. Fecal occult was negative for kidney or liver function test were normal. Patient did have an EKG as part of abdominal workup and did show some T-wave abnormalities on the anterolateral leads. Patient's troponin 0.0-1. She does state she's also had some intermittent episodes of high blood pressure and chest pain for the past month. Patient at this time denies any current chest pain. Patient's computed tomography scan did show concern for a left adrenal mass which was new finding for the Patient. Concern possible tumor. I discussed all the findings with Dr. Phan who discussed the case with Dr. Dobbs. Patient was admitted this time for cardiac rule out due to abnormal EKG and monitoring of the new finding adrenal mass. (Yessica Hogan) - Lab Data Lab Results 10/20/20 10/20/20 10/20/20 Range/Units 15:56 15:56 15:56 WBC 8.2 (3.8-10.6) k/uL RBC 4.93 (3.80-5.40) m/uL Hgb 14.3 (11.4-16.0) gm/dL Hct 41.9 (34.0-46.0) % MCV 85.0 (80.0-100.0) fL MCH 28.9 (25.0-35.0) pg MCHC 34.0 (31.0-37.0) g/dL RDW 13.1 (11.5-15.5) % Plt Count 204 (150-450) k/uL MPV 8.2 Neutrophils % 66 % Lymphocytes % 27 % Monocytes % 4 % Eosinophils % 1 % Basophils % 0 % Neutrophils # 5.4 (1.3-7.7) k/uL Lymphocytes # 2.2 (1.0-4.8) k/uL Monocytes # 0.3 (0-1.0) k/uL Eosinophils # 0.1 (0-0.7) k/uL Basophils # 0.0 (0-0.2) k/uL Sodium 136 L (137-145) mmol/L Potassium 3.3 L (3.5-5.1) mmol/L Chloride 102 (98-107) mmol/L Carbon Dioxide 28 (22-30) mmol/L Anion Gap 6 mmol/L BUN 16 (7-17) mg/dL Creatinine 0.88 (0.52-1.04) mg/dL Est GFR (CKD-EPI)AfAm 79 (>60 ml/min/1.73 sqM) Est GFR (CKD-EPI)NonAf 69 (>60 ml/min/1.73 sqM) Glucose 99 (74-99) mg/dL Calcium 9.5 (8.4-10.2) mg/dL Total Bilirubin 0.5 (0.2-1.3) mg/dL AST 24 (14-36) U/L ALT 14 (4-34) U/L Alkaline Phosphatase 62 (38-126) U/L Troponin I (0.000-0.034) ng/mL Total Protein 6.5 (6.3-8.2) g/dL Albumin 3.9 (3.5-5.0) g/dL Amylase 69 (30-110) U/L Lipase 169 (23-300) U/L Urine Color Light Yellow Urine Appearance Clear (Clear) Urine pH 7.0 (5.0-8.0) Ur Specific [place] 1.007 (1.001-1.035) Urine Protein Negative (Negative) Urine Glucose (UA) Negative (Negative) Urine Ketones Negative (Negative) Urine Blood Negative (Negative) Urine Nitrite Negative (Negative) Urine Bilirubin Negative (Negative) Urine Urobilinogen <2.0 (<2.0) mg/dL Ur Leukocyte Esterase Negative (Negative) Stool Occult Blood (Negative) 10/20/20 10/20/20 Range/Units 16:16 Unknown WBC (3.8-10.6) k/uL RBC (3.80-5.40) m/uL Hgb (11.4-16.0) gm/dL Hct (34.0-46.0) % MCV (80.0-100.0) fL MCH (25.0-35.0) pg MCHC (31.0-37.0) g/dL RDW (11.5-15.5) % Plt Count (150-450) k/uL MPV Neutrophils % % Lymphocytes % % Monocytes % % Eosinophils % % Basophils % % Neutrophils # (1.3-7.7) k/uL Lymphocytes # (1.0-4.8) k/uL Monocytes # (0-1.0) k/uL Eosinophils # (0-0.7) k/uL Basophils # (0-0.2) k/uL Sodium (137-145) mmol/L Potassium (3.5-5.1) mmol/L Chloride (98-107) mmol/L Carbon Dioxide (22-30) mmol/L Anion Gap mmol/L BUN (7-17) mg/dL Creatinine (0.52-1.04) mg/dL Est GFR (CKD-EPI)AfAm (>60 ml/min/1.73 sqM) Est GFR (CKD-EPI)NonAf (>60 ml/min/1.73 sqM) Glucose (74-99) mg/dL Calcium (8.4-10.2) mg/dL Total Bilirubin (0.2-1.3) mg/dL AST (14-36) U/L ALT (4-34) U/L Alkaline Phosphatase (38-126) U/L Troponin I 0.021 (0.000-0.034) ng/mL Total Protein (6.3-8.2) g/dL Albumin (3.5-5.0) g/dL Amylase (30-110) U/L Lipase (23-300) U/L Urine Color Urine Appearance (Clear) Urine pH (5.0-8.0) Ur Specific [place] (1.001-1.035) Urine Protein (Negative) Urine Glucose (UA) (Negative) Urine Ketones (Negative) Urine Blood (Negative) Urine Nitrite (Negative) Urine Bilirubin (Negative) Urine Urobilinogen (<2.0) mg/dL Ur Leukocyte Esterase (Negative) Stool Occult Blood Negative (Negative) 10/20/20 17:21 EKG performed at 1556 shows normal sinus rhythm with ST anteriorly consider inferior ischemia. ST N [place] consider anterolateral ischemia. Prolonged QT. Ventricular rate of 64 bpm. Pulse 128 ms. Stressors and is 88 ms. QT QTc is 478/4 and 93 ms (Yessica Hogan) - Radiology Data Normal chest. Clearing of minimal atelectasis at left lung base compared old exam. CT shows a large mass of the left sternal gland with variable enhancement that is consistent with primary tumor. Metastatic disease not excluded. Follow-up recommended. Multiple hepatic cysts. (Yessica Hogan) Disposition Is patient prescribed a controlled substance at d/c from ED?: No <Yessica Hogan - Last Filed: 10/20/20 18:38> <Les Phan - Last Filed: 10/20/20 18:44> Clinical Impression: Abnormal EKG, Adrenal mass, Back pain Disposition: ADMITTED IP TO THIS [facility] Condition: Stable Referrals: Brenden Reyes Jr, [Primary Care Provider] - 1-2 days
[2020-10-20 16:07] LABS: Appearance,Urine Clear (Clear); Bilirubin,Urine Negative (Negative); Blood,Urine Negative (Negative); Color,Urine Light Yellow; Glucose,Urine (UA) Negative (Negative); Ketones,Urine Negative (Negative); Leukocyte Esterase,Urine Negative (Negative); Nitrite,Urine Negative (Negative); Protein,Urine Negative (Negative); Specific Gravity,Urine 1.007 (1.001-1.035); Urobilinogen,Urine <2.0 mg/dL (<2.0)
[2020-10-20 16:09] LABS: Basophils % (A) 0 %; Eosinophils # (A) 0.1 k/uL (0-0.7); Eosinophils % (A) 1 %; HCT 41.9 % (34.0-46.0); HGB 14.3 gm/dL (11.4-16.0); Lymphocytes # (A) 2.2 k/uL (1.0-4.8); Lymphocytes % (A) 27 %; MCH 28.9 pg (25.0-35.0); Mean Platelet Volume 8.2; Monocytes # (A) 0.3 k/uL (0-1.0); Monocytes % (A) 4 %; Neutrophils # (A) 5.4 k/uL (1.3-7.7); Neutrophils % (A) 66 %; Platelet Count 204 k/uL (150-450); RBC 4.93 m/uL (3.80-5.40); RDW 13.1 % (11.5-15.5); WBC 8.2 k/uL (3.8-10.6)
[2020-10-20 16:14] LABS: Albumin 3.9 g/dL (3.5-5.0); Calcium 9.5 mg/dL (8.4-10.2); Potassium 3.3 mmol/L (3.5-5.1); Total Bilirubin 0.5 mg/dL (0.2-1.3); Total Protein 6.5 g/dL (6.3-8.2)
--- NOTE | 2020-10-20 16:45 | XR ---
EXAMINATION TYPE: XR chest 2V DATE OF EXAM: 10/20/2020 COMPARISON: 09/01/2018 HISTORY: Abnormal cardiogram. Chest pain TECHNIQUE: FINDINGS: Heart and mediastinum are normal. Lungs are clear of infiltrate. There is no heart failure. Bony thorax is intact. There are no hilar masses. IMPRESSION: Normal chest. There is clearing of the minimal atelectasis at the left lung base compared to old exam.
--- NOTE | 2020-10-20 17:39 | CT ---
EXAMINATION TYPE: CT abdomen pelvis w con DATE OF EXAM: 10/20/2020 COMPARISON: None HISTORY: midline back/pelvic pain CT DLP: 1480.7 mGycm Automated exposure control for dose reduction was used. CONTRAST: Performed with IV Contrast, patient injected with 100 mL of Isovue 300. Images obtained from the diaphragm to the floor the pelvis with IV contrast. Lung bases are clear. There is no pleural effusion. Heart size is normal. There is no pericardial eff usion. There are multiple variable-sized hepatic cysts. The largest is in the anterior right lobe and measur es 4.3 cm. The bile ducts are not dilated. Gallbladder appears normal. Spleen is intact. There is no pancreatic mass. The stomach is intact. There is a large mass involving the left adrenal gland that measures 6.3 cm with variable enhancement . The right adrenal gland appears normal. Kidneys show satisfactory contrast opacification. There is no hydronephrosis. Ureters are not dilated . There is no retroperitoneal adenopathy. There is 2 x 1 cm cortical cyst lateral left kidney. Bladde r is almost empty. The uterus appears normal. There is no evidence of pelvic mass. Uterus is somewhat retroverted. The lumbar vertebra have normal alignment. There is no compression fracture. Disc space s are fairly normal. There is no mesenteric edema. There is no ascites or free air. There is no bowel obstruction. Appendi x is posterior and appears normal. IMPRESSION: There is large mass of the left adrenal gland with variable enhancement that is consistent with prima ry tumor. Metastatic disease not excluded. Follow-up recommended. Multiple hepatic cysts.
[2020-10-20] MEDS ORDERED: NITROGLYCERIN SL TABS 0.4 MG TAB SUBLINGUAL PRN (18:38)
[2020-10-20] MEDS ORDERED: ONDANSETRON 4 MG/2 ML VIAL IVP PRN (18:40)
[2020-10-20] MEDS ORDERED: IBUPROFEN 200 MG TAB PO PRN (18:40)
[2020-10-20] MEDS ORDERED: HYDROmorphone 1 MG/ML 1 ML SYRINGE IVP PRN (18:40)
[2020-10-20] MEDS ORDERED: NALOXONE 0.4 MG/ML 1 ML VIAL IV PRN (18:40)
[2020-10-20] MEDS ORDERED: ACETAMINOPHEN TAB 325 MG TAB PO PRN (18:40)
[2020-10-20] MEDS: lisinopriL 10 MG TAB PO SCH (22:03)
[2020-10-21] MEDS: IBUPROFEN 400 MG TAB PO PRN ×3 (02:35→20:05)
[2020-10-21] MEDS ORDERED: SERTRALINE 100 MG TAB PO SCH (09:00)
[2020-10-21] MEDS ORDERED: BISOPROLOL 5 MG TAB PO SCH (09:00)
[2020-10-21] MEDS ORDERED: MULTIVITAMINS, THERA 1 EACH TAB PO SCH (09:00)
[2020-10-21] MEDS ORDERED: ASPIRIN 325 MG TAB PO SCH (09:00)
[2020-10-21] MEDS ORDERED: LORATADINE 10 MG TAB PO SCH (09:00)
[2020-10-21] MEDS ORDERED: hydroCHLOROthiazide 25 MG TAB PO SCH (09:00)
[2020-10-21] MEDS ORDERED: PANTOPRAZOLE 40 MG/10 ML VIAL IV SCH (09:00)
[2020-10-21 10:48] LABS: LDL Cholesterol,Calculated 137.8 mg/dL (0.0-131.0); VLDL Calculation 47.2 mg/dL (5.00-40.00)
--- NOTE | 2020-10-21 14:42 | P.HPIM ---
History of Present Illness H&P Date: 10/21/20 Chief Complaint: Back pain, incidental left adrenal mass 65-year-old patient well-known to the practice . Presented to the emergency room at [facility] with chief complaint persistent moderate to severe low back pain expressing concerns regarding colon cancer patient states her mother from colon cancer as a sick significant family history of colon cancer., We had just seen this patient in the office approximately 2 weeks ago at that time she was offered: Cologuard, the patient declined at that time. Upon evaluation of patient this morning in the hospital bed her abdominal exam was benign at best, and back pain was limited. Discussed the left adrenal mass which was found incidentally on CAT scan. Discussed at length with patient the need to obtain a tissue biopsy of the mass. And discussed that this was not probably going to be get done over the holiday weekend. Her pain seemed to be well controlled at this time. Patient agreed to go home on Robaxin 500 mg every 8 hours. We will reevaluate the patient in the office on Sunday or Sunday aft er the holiday. Patient has no nausea no vomiting no discrete abdominal pain and no gastrointestinal bleeding of any kind Review of Systems Constitutional: Reports as per HPI Cardiovascular: Reports as per HPI Respiratory: Reports as per HPI Gastrointestinal: Reports as per HPI Genitourinary: Reports as per HPI Menstruation: Reports postmenopausal Musculoskeletal: Reports low back pain, Reports muscle weakness Integumentary: Reports as per HPI Neurological: Reports as per HPI Psychiatric: Reports as per HPI Endocrine: Reports as per HPI Past Medical History Past Medical History: Hypertension Additional Past Medical History / Comment(s): Hydrocephalus History of Any Multi-Drug Resistant Organisms: None Reported Past Surgical History: Tubal Ligation Past Psychological History: Anxiety, Depression Smoking Status: Never smoker Past Alcohol Use History: None Reported Past Drug Use History: None Reported - Past Family History Mother Family Medical History: Cancer Medications and Allergies Home Medications Medication Instructions Recorded Confirmed Type Multivitamins, Thera [Multivitamin 1 tab PO DAILY 05/10/17 10/20/20 History (formulary)] Sertraline [Zoloft] 100 mg PO DAILY 05/10/17 10/20/20 History Bisoprolol Fumarate [Zebeta] 10 mg PO DAILY 09/01/20 10/20/20 History Cetirizine HCl 10 mg PO DAILY 09/01/20 10/20/20 History Lisinopril [Prinivil] 10 mg PO DAILY@1500 09/01/20 10/20/20 History Ibuprofen [Motrin Ib] 600 mg PO Q4-6H PRN 10/20/20 10/20/20 History hydroCHLOROthiazide [Hydrodiuril] 25 mg PO DAILY 10/20/20 10/20/20 History Allergies Allergy/AdvReac Type Severity Reaction Status Date / Time No Known Allergies Allergy Verified 10/20/20 17:23 Physical Exam Osteopathic Statement: *. No significant issues noted on an osteopathic structural exam other than those noted in the History and Physical/Consult. Vitals: Vital Signs Temp Pulse Pulse Resp BP BP Pulse Ox 10/21/20 07:26 97.7 F 68 16 153/71 97 10/21/20 01:44 97.5 F L 84 16 113/65 95 10/20/20 22:12 73 16 162/67 98 10/20/20 20:23 97.9 F 65 16 151/78 96 10/20/20 20:00 16 10/20/20 18:00 73 16 125/75 98 10/20/20 17:05 99.4 F 70 18 154/84 97 10/20/20 16:11 60 16 166/75 95 10/20/20 14:50 99.3 F 86 20 148/87 97 Intake and Output 10/20/20 10/21/20 10/21/20 22:59 06:59 14:59 Intake Total 1000 Balance 1000 Intake: Amount of Fluid Infused ( 1000 ml) Other: # Voids 1 Weight 81.647 kg General: [Patient awake, alert and oriented times 3. Patient in no acute distress.] HEENT: [PERRL. EOMI. No pharyngeal erythema or exudate.] Neck: [No adenopathy.] Cardiac: [Heart regular in rate and rhythm. No S3. No S4. No clicks, rubs. No murmur.] Lungs: [Clear to auscultation bilaterally.] Abdomen: [No mass. No organomegaly. Bowel sounds presnt and normoactive in all 4 quadrants.] No palpable mass Extremes: [No edema no cyanosis no claudication normal pulses] : Normal female genitalia Musculoskeletal: [No joint erythema, edema or tenderness.] Skin: [No rash.] Neurologic: [No lateralizing deficits. CN II - XII grossly intact.] Lymphatic: [No adenopathy.] Results CBC & Chem 7: 10/20/20 15:56 10/20/20 15:56 Labs: Abnormal Lab Results - Last 24 Hours (Table) 10/20/20 10/21/20 Range/Units 15:56 07:06 Sodium 136 L (137-145) mmol/L Potassium 3.3 L (3.5-5.1) mmol/L Triglycerides 236.0 H (0.0-149.0) mg/dL Cholesterol 222 H (0-200) mg/dL LDL Cholesterol, Calc 137.8 H (0.0-131.0) mg/dL VLDL Cholesterol, Calc 47.20 H (5.00-40.00) mg/dL HDL Cholesterol 37.0 L (40.0-60.0) mg/dL Thrombosis Risk Factor Assmnt - Choose All That Apply Any of the Below Risk Factors Present?: No Assessment and Plan (1) Abnormal EKG Current Visit: Yes Status: Acute Code(s): R94.31 - ABNORMAL ELECTROCARDIOGRAM [ECG] [EKG] SNOMED Code(s): 959958089 (2) Adrenal mass Current Visit: Yes Status: Acute Code(s): E27.8 - OTHER SPECIFIED DISORDERS OF ADRENAL GLAND SNOMED Code(s): 514000908 (3) Back pain Current Visit: Yes Status: Acute Code(s): M54.9 - DORSALGIA, UNSPECIFIED SNOMED Code(s): 034907709 Plan: Abnormal EKG Patient denies chest pain No elevated troponins Abdominal pain improved Back pain resolved Anticipate sending patient home on Robaxin 500 mg 1 by mouth 3 times a day Await cardiology clearance Time with Patient: Greater than 30
[2020-10-21] MEDS ORDERED: lisinopriL 10 MG TAB PO SCH (15:00)
[2020-10-21] MEDS ORDERED: lisinopriL 20 MG TAB PO STA (16:15)
[2020-10-21 16:31] VITALS: BP 178/90; PULSE 61; RESP 17; TEMP 98.8
[2020-10-21] MEDS ORDERED: methocarbamoL 750 MG TAB PO ONE (17:44)
[2020-10-21] MEDS: lisinopriL 10 MG TAB PO SCH (18:25)
[2020-10-24 09:28] LABS: Glucose,Whole Blood 104 mg/dL (75-99)
== END 2020-10-21 21:30 | disposition home or self-care (01) | DRG 552 ==
LOC: EC 14:42 → 5NMEDONC 18:40
PROVIDERS: ADMIT Family Medicine; ATTEND Family Medicine
DX: M54.5 Low back pain (principal); G91.9 Hydrocephalus, unspecified; E27.9 Disorder of adrenal gland, unspecified; R94.31 Abnormal electrocardiogram [ECG] [EKG]; R10.30 Lower abdominal pain, unspecified; F32.9 Major depressive disorder, single episode, unspecified; F41.9 Anxiety disorder, unspecified; I10 Essential (primary) hypertension; Z79.899 Other long term (current) drug therapy; Z98.51 Tubal ligation status; Z80.0 Family history of malignant neoplasm of digestive organs
CPT/HCPCS: 36415; 71046; 74177; 80053; 80061; 81003; 82088; 82150; 82272; 83690; 83835; 84244; 84484; 85025; 93005; 96361; 96374; 99285

== ENCOUNTER → 2020-12-08 | Outpatient (CLI) | payer MEDICARE | END | disposition home or self-care (01) | LOC: LABMAIN 17:17 | PROVIDERS: ATTEND Internal Medicine | DX: D35.02 Benign neoplasm of left adrenal gland (principal) | CPT/HCPCS: 82530; 83835 ==

== ENCOUNTER → 2021-07-01 | Outpatient (CLI) | payer MEDICARE ==
--- NOTE | 2021-07-01 15:22 | US ---
EXAMINATION TYPE: US venous doppler duplex LE LT DATE OF EXAM: 07/01/2021 3:06 PM COMPARISON: NONE CLINICAL HISTORY: R22.40 swelling lower leg. Left leg pain SIDE PERFORMED: Left TECHNIQUE: The lower extremity deep venous system is examined utilizing real time linear array sonog jorge alberto with graded compression, doppler sonography and color-flow sonography. VESSELS IMAGED: Common Femoral Vein Deep Femoral Vein Greater Saphenous Vein * Femoral Vein Popliteal Vein Small Saphenous Vein * Proximal Calf Veins (* superficial vessels) Left Leg: Appears negative for DVT IMPRESSION: 1. Left lower extremity ultrasound negative for deep venous thrombosis.
== END | disposition home or self-care (01) ==
LOC: RADUSWWP 14:10
PROVIDERS: ATTEND Family Medicine
DX: M79.605 Pain in left leg (principal); R22.42 Localized swelling, mass and lump, left lower limb

== ENCOUNTER 2021-07-15 14:36 | Emergency (ER) | payer MEDICARE ==
[2021-07-15 14:50] VITALS: TEMP 99.1
[2021-07-15] MEDS ORDERED: SODIUM CHLORIDE 0.9% 1,000 ML IV ONE (16:02)
--- NOTE | 2021-07-15 16:06 | ED ---
Dizziness HPI - General Chief Complaint: Dizziness Stated Complaint: Dizziness/low BP Time Seen by Provider: 07/15/21 15:44 Source: patient Mode of arrival: ambulatory Limitations: no limitations - History of Present Illness Initial Comments: This is a 66-year-old female with a history of hypertension and adrenal mass who presents emergency department for an episode of dizziness. The patient states that she was at the pharmacy trying to mixing picker tender her new blood pressure medications when she had an episode of dizziness. She states that she felt very "woozy" and felt like she may fall over. She states that she gripped the desk in front of her and did not fall there she told the retail pharmacy technician who advised her to sit down. She states that she felt that way for approximately 30 minutes before feeling improved. She states during this episode she did have some shortness of breath and felt a little bit sweaty. No nausea. No chest pain. She states that she has had multiple blood pressure medication changes over the last few weeks because her ordnance keeper is trying to get her blood pressure better controlled for have surgery on this left adrenal gland. She states that currently she is on Cardura and amlodipine with metoprolol. She states that she has not taken the amlodipine yet however does take metoprolol 25 mg twice a day and the Cardura was decreased to 12 mg daily and she did take these this morning. She denies any nausea, vomiting, or diarrhea. No dark or bloody stools. She does state that she noted that her left lower [place] has been swollen recently. She states that she noted this after her core thiazide was stopped recently. No other acute complaints. - Related Data Home Medications Medication Instructions Recorded Confirmed Multivitamins, Thera [Multivitamin 1 tab PO DAILY 05/10/17 07/15/21 (formulary)] Sertraline [Zoloft] 100 mg PO DAILY 05/10/17 07/15/21 Bisoprolol Fumarate [Zebeta] 10 mg PO BID 09/01/20 07/15/21 ALPRAZolam [Xanax] 0.5 mg PO DAILY PRN 07/15/21 07/15/21 Aspirin EC [Ecotrin Low Dose] 81 mg PO DAILY 07/15/21 07/15/21 Doxazosin [Cardura] 12 mg PO DAILY 07/15/21 07/15/21 Fluticasone Nasal [place] [Flonase 2 spr EA NOSTRIL DAILY PRN 07/15/21 07/15/21 Nasal [place]] Metoprolol Succinate [Toprol XL] 25 mg PO DAILY 07/15/21 07/15/21 amLODIPine [Norvasc] 5 mg PO DAILY 07/15/21 07/15/21 dexAMETHasone 1 mg PO DIRECTED 07/15/21 07/15/21 Allergies Allergy/AdvReac Type Severity Reaction Status Date / Time No Known Allergies Allergy Verified 07/15/21 17:32 Review of Systems ROS Statement: Those systems with pertinent positive or pertinent negative responses have been documented in the HPI. ROS Other: All systems not noted in ROS Statement are negative. Past Medical History Past Medical History: Hypertension Additional Past Medical History / Comment(s): Hydrocephalus History of Any Multi-Drug Resistant Organisms: None Reported Past Surgical History: Tubal Ligation Past Psychological History: Anxiety, Depression Smoking Status: Never smoker Past Alcohol Use History: None Reported Past Drug Use History: None Reported - Past Family History Mother Family Medical History: Cancer General Exam - General Exam Comments Initial Comments: Constitutional: Awake alert Appears comfortable Head: Normocephalic atraumatic Eyes: no conjunctival injection No scleral icterus EOMI Neck: No JVD Supple Heart: Regular rate rhythm normal S1-S2 no murmurs Lungs: Clear to auscultation bilaterally No wheezing No rales Abdomen: Soft nondistended nontender Extremities: Non edematous DP pulses intact Radial pulses intact Neuro: A&Ox3 No focal neurologic deficits Psych: Appropriate mood and affect Limitations: no limitations Course Vital Signs 07/15/21 07/15/21 07/15/21 14:42 15:30 16:00 Temperature 99.1 F Pulse Rate 55 L 55 L 61 Respiratory 18 17 18 Rate Blood Pressure 136/70 136/70 133/68 O2 Sat by Pulse 98 94 L 97 Oximetry 07/15/21 16:30 Temperature Pulse Rate 56 L Respiratory 22 Rate Blood Pressure 122/72 O2 Sat by Pulse 93 L Oximetry EKG Findings - EKG Comments: EKG Findings:: EKG showing sinus bradycardia with a rate of 53. There are no abnormal ST segment changes. There are T-wave inversions in lead 1, 2, aVF, V3 through V6. QTC is 441. Other intervals normal. No ectopy. Medical Decision Making - Medical Decision Making This 58-year-old female presents emergency department for an episode of lightheadedness. The patient had resolved symptoms potentially get emergency department however she was given some fluids for further symptom improvement. The patient had blood work performed that was mostly unremarkable except for an elevated d-dimer. CTA was performed which was unremarkable for PE. Did show the presence of this adrenal mass with the patient is aware of. The patient otherwise felt improved. I advised her to continue with her metoprolol and Cardura however to hold the amlodipine and call her ordnance keeper. She can return emergency department if she has any worsening or changing symptoms. All questions were answered. - Lab Data Result diagrams: 07/15/21 16:04 07/15/21 16:04 Lab Results 07/15/21 07/15/21 07/15/21 Range/Units 16:04 16:04 16:04 WBC 7.6 (3.8-10.6) k/uL RBC 4.44 (3.80-5.40) m/uL Hgb 13.5 (11.4-16.0) gm/dL Hct 39.9 (34.0-46.0) % MCV 89.7 (80.0-100.0) fL MCH 30.4 (25.0-35.0) pg MCHC 33.9 (31.0-37.0) g/dL RDW 13.3 (11.5-15.5) % Plt Count 188 (150-450) k/uL MPV 8.5 Neutrophils % 74 % Lymphocytes % 18 % Monocytes % 5 % Eosinophils % 1 % Basophils % 1 % Neutrophils # 5.6 (1.3-7.7) k/uL Lymphocytes # 1.4 (1.0-4.8) k/uL Monocytes # 0.4 (0-1.0) k/uL Eosinophils # 0.1 (0-0.7) k/uL Basophils # 0.0 (0-0.2) k/uL PT 10.4 (9.0-12.0) sec INR 1.0 (<1.2) APTT 21.6 L (22.0-30.0) sec D-Dimer 1.03 H (<0.60) mg/L FEU Sodium 137 (137-145) mmol/L Potassium 4.0 (3.5-5.1) mmol/L Chloride 105 (98-107) mmol/L Carbon Dioxide 23 (22-30) mmol/L Anion Gap 9 mmol/L BUN 14 (7-17) mg/dL Creatinine 0.84 (0.52-1.04) mg/dL Est GFR (CKD-EPI)AfAm 83 (>60 ml/min/1.73 sqM) Est GFR (CKD-EPI)NonAf 72 (>60 ml/min/1.73 sqM) Glucose 108 H (74-99) mg/dL Calcium 9.4 (8.4-10.2) mg/dL Magnesium 2.3 (1.6-2.3) mg/dL Total Bilirubin 0.6 (0.2-1.3) mg/dL AST 20 (14-36) U/L ALT 10 (4-34) U/L Alkaline Phosphatase 46 (38-126) U/L Troponin I (0.000-0.034) ng/mL Total Protein 6.2 L (6.3-8.2) g/dL Albumin 3.7 (3.5-5.0) g/dL 07/15/21 Range/Units 16:04 WBC (3.8-10.6) k/uL RBC (3.80-5.40) m/uL Hgb (11.4-16.0) gm/dL Hct (34.0-46.0) % MCV (80.0-100.0) fL MCH (25.0-35.0) pg MCHC (31.0-37.0) g/dL RDW (11.5-15.5) % Plt Count (150-450) k/uL MPV Neutrophils % % Lymphocytes % % Monocytes % % Eosinophils % % Basophils % % Neutrophils # (1.3-7.7) k/uL Lymphocytes # (1.0-4.8) k/uL Monocytes # (0-1.0) k/uL Eosinophils # (0-0.7) k/uL Basophils # (0-0.2) k/uL PT (9.0-12.0) sec INR (<1.2) APTT (22.0-30.0) sec D-Dimer (<0.60) mg/L FEU Sodium (137-145) mmol/L Potassium (3.5-5.1) mmol/L Chloride (98-107) mmol/L Carbon Dioxide (22-30) mmol/L Anion Gap mmol/L BUN (7-17) mg/dL Creatinine (0.52-1.04) mg/dL Est GFR (CKD-EPI)AfAm (>60 ml/min/1.73 sqM) Est GFR (CKD-EPI)NonAf (>60 ml/min/1.73 sqM) Glucose (74-99) mg/dL Calcium (8.4-10.2) mg/dL Magnesium (1.6-2.3) mg/dL Total Bilirubin (0.2-1.3) mg/dL AST (14-36) U/L ALT (4-34) U/L Alkaline Phosphatase (38-126) U/L Troponin I <0.012 (0.000-0.034) ng/mL Total Protein (6.3-8.2) g/dL Albumin (3.5-5.0) g/dL Disposition Clinical Impression: Pre-syncope Disposition: HOME SELF-CARE Condition: Stable Instructions (If sedation given, give patient instructions): Dizziness (ED) Is patient prescribed a controlled substance at d/c from ED?: No Referrals: Brenden Reyes Jr, DO [Primary Care Provider] - 1-2 days
[2021-07-15 16:16] LABS: Basophils % (A) 1 %; Eosinophils # (A) 0.1 k/uL (0-0.7); Eosinophils % (A) 1 %; HCT 39.9 % (34.0-46.0); HGB 13.5 gm/dL (11.4-16.0); Lymphocytes # (A) 1.4 k/uL (1.0-4.8); Lymphocytes % (A) 18 %; MCH 30.4 pg (25.0-35.0); MCHC 33.9 g/dL (31.0-37.0); MCV 89.7 fL (80.0-100.0); Mean Platelet Volume 8.5; Monocytes # (A) 0.4 k/uL (0-1.0); Monocytes % (A) 5 %; Neutrophils # (A) 5.6 k/uL (1.3-7.7); Neutrophils % (A) 74 %; Platelet Count 188 k/uL (150-450); RBC 4.44 m/uL (3.80-5.40); RDW 13.3 % (11.5-15.5); WBC 7.6 k/uL (3.8-10.6)
[2021-07-15 16:23] LABS: Albumin 3.7 g/dL (3.5-5.0); Calcium 9.4 mg/dL (8.4-10.2); Magnesium 2.3 mg/dL (1.6-2.3); Total Bilirubin 0.6 mg/dL (0.2-1.3); Total Protein 6.2 g/dL (6.3-8.2)
[2021-07-15 16:40] LABS: Prothrombin Time 10.4 sec (9.0-12.0)
[2021-07-15 16:41] LABS: Partial Thromboplastin Time 21.6 sec (22.0-30.0)
--- NOTE | 2021-07-15 18:21 | CT ---
EXAMINATION TYPE: CT angio chest DATE OF EXAM: 07/15/2021 COMPARISON: HISTORY: Dyspnea, presyncope, history of adrenal cancer, elevated d-dimer. CT DLP: 415.1 mGycm Automated exposure control for dose reduction was used. CONTRAST: Performed with IV Contrast, patient injected with 100 mL of Isovue 370. There are 3-D post processed images. The lungs are clear of consolidation. There is some mild reticular interstitial density in the mid an d lower lung trejo. Heart is borderline enlarged. There is no pleural effusion. There is no pericard ial effusion. There are no hilar masses. There is no mediastinal adenopathy. Thoracic aorta is intact. There is no aneurysm or dissection. Ascending aorta measures 3.6 cm. There is no evidence of filling defect in the pulmonary arteries. Thoracic spine is intact. There is no compression fracture. There are multiple cysts in the liver that measure up to 4.5 cm. There is 5.8 cm rounded intermediate density left adrenal mass. The bony thorax is intact. There is no thoracic compression fracture. Sternum is intact. IMPRESSION: No evidence of pulmonary embolism. Hepatic cysts unchanged. Large left adrenal mass appears slightly smaller than last exam of 10/20/2020. Mild reticular interstitial density. No suspicious pulmonary ma ss.
[2021-07-15 19:16] VITALS: BP 141/74; PULSE 66; RESP 18
== END 2021-07-15 19:23 | disposition home or self-care (01) ==
LOC: EC 14:36
DX: R55 Syncope and collapse (principal); I10 Essential (primary) hypertension; F41.9 Anxiety disorder, unspecified; F32.9 Major depressive disorder, single episode, unspecified; Z79.82 Long term (current) use of aspirin; Z98.51 Tubal ligation status
CPT/HCPCS: 99284; 96360; 36415; 93005; 85379; 80053; 83735; 84484; 85025; 85610; 85730; 71275; Q9967

== ENCOUNTER 2023-02-03 19:02 | Emergency (ER) | payer MEDICARE ==
[2023-02-03 19:06] VITALS: TEMP 98.5
[2023-02-03] MEDS ORDERED: SODIUM CHLORIDE 0.9% 1,000 ML IV STA (20:01)
[2023-02-03 20:22] LABS: Albumin 4.5 g/dL (3.5-5.0); Basophils % (A) 0 %; Calcium 9.5 mg/dL (8.4-10.2); Eosinophils % (A) 1 %; HGB 14.5 gm/dL (11.4-16.0); Lymphocytes # (A) 1.4 k/uL (1.0-4.8); Lymphocytes % (A) 29 %; MCH 29.9 pg (25.0-35.0); MCHC 35.4 g/dL (31.0-37.0); MCV 84.7 fL (80.0-100.0); Mean Platelet Volume 8.5; Monocytes # (A) 0.2 k/uL (0-1.0); Monocytes % (A) 4 %; Neutrophils % (A) 64 %; Potassium 4.3 mmol/L (3.5-5.1); RBC 4.84 m/uL (3.80-5.40); RDW 13.8 % (11.5-15.5); Total Bilirubin 0.4 mg/dL (0.2-1.3); Total Protein 7.1 g/dL (6.3-8.2); WBC 4.6 k/uL (3.8-10.6)
--- NOTE | 2023-02-03 20:27 | CT ---
EXAMINATION TYPE: CT abdomen pelvis wo con DATE OF EXAM: 02/03/2023 COMPARISON: 10/20/2020 HISTORY: Diarrhea, irregular bowel movements. Hx LT kidney/adrenal gland removal CT DLP: 821.7 mGycm Automated exposure control for dose reduction was used. TECHNIQUE: Helical acquisition of images was performed from the lung bases through the pelvis. FINDINGS: LUNG BASES: No significant abnormality is appreciated. LIVER/GB: Numerous hypodense lesions within the liver are again noted largest measuring 4.7 cm and on e Hounsfield unit compatible with simple cyst. PANCREAS: No significant abnormality is seen. SPLEEN: No significant abnormality is seen. ADRENALS: Correlate for previous left adrenalectomy KIDNEYS: Post left nephrectomy changes are noted. Right kidney demonstrates no hydronephrosis or neph rolithiasis. FREE AIR: No free air is visualized URINARY BLADDER: No significant abnormality is seen. ADENOPATHY: None visualized. OSSEOUS STRUCTURES: Hypertrophic and degenerative changes of the spine. BOWEL: Bowel gas pattern nonspecific with no obstruction. Appendix has a normal caliber. Stomach is limited in assessment due to incomplete distention. OTHER: There is a right uterine moderate calcification compatible with fibroid. Aorta of normal calib er with atherosclerotic changes. Small fat-containing periumbilical hernia. IMPRESSION: 1. NONSPECIFIC GAS PATTERN WITH NO EVIDENCE OF OBSTRUCTION OR INFLAMMATORY CHANGES. 2. MULTIPLE HEPATIC CYSTS STABLE FROM PRIOR EXAM. 3. POSTSURGICAL CHANGE COMPATIBLE WITH PREVIOUS LEFT NEPHRECTOMY AND ADRENALECTOMY.
--- NOTE | 2023-02-03 21:05 | ED ---
Abdominal Pain HPI - General Chief Complaint: Abdominal Pain Stated Complaint: Irregular Bowel Movements Time Seen by Provider: 02/03/23 19:11 Source: patient Mode of arrival: ambulatory Limitations: no limitations - History of Present Illness Initial Comments: 68-year-old female with past history of hypertension presents emergency room reporting diarrhea. States that she was driving home today from seeing a friend. She had an immediate sensation that she had a use the restroom and ended up having an episode of stool incontinence on herself while driving. Denies black or bloody stools. States she came home and took a shower and then was exhausted so heavily in bed for several hours. She admits to some mild lower abdominal cramping. No further episodes of stooling. Patient reports to abnormal bowel habits for the past 2 years. Takes MiraLAX to have a bowel movement but this is not a new medication. She did not take any Imodium at home prior to coming into the emergency department. She denies any fevers. No sick contacts with similar symptoms. No antibiotic use. No anticoagulant use. No other alleviating, precipitating or modifying factors - Related Data Home Medications Medication Instructions Recorded Confirmed Multivitamins, Thera [Multivitamin 1 tab PO DAILY 05/10/17 07/15/21 (formulary)] Sertraline [Zoloft] 100 mg PO DAILY 05/10/17 07/15/21 Bisoprolol Fumarate [Zebeta] 10 mg PO BID 09/01/20 07/15/21 ALPRAZolam [Xanax] 0.5 mg PO DAILY PRN 07/15/21 07/15/21 Aspirin EC [Ecotrin Low Dose] 81 mg PO DAILY 07/15/21 07/15/21 Doxazosin [Cardura] 12 mg PO DAILY 07/15/21 07/15/21 Fluticasone Nasal [place] [Flonase 2 spr EA NOSTRIL DAILY PRN 07/15/21 07/15/21 Nasal [place]] Metoprolol Succinate [Toprol XL] 25 mg PO DAILY 07/15/21 07/15/21 amLODIPine [Norvasc] 5 mg PO DAILY 07/15/21 07/15/21 dexAMETHasone [Decadron] 1 mg PO DIRECTED 07/15/21 07/15/21 Allergies Allergy/AdvReac Type Severity Reaction Status Date / Time morphine Allergy Hallucinati Verified 02/03/23 19:07 ons Review of Systems ROS Statement: Those systems with pertinent positive or pertinent negative responses have been documented in the HPI. ROS Other: All systems not noted in ROS Statement are negative. Past Medical History Past Medical History: Hypertension Additional Past Medical History / Comment(s): Hydrocephalus History of Any Multi-Drug Resistant Organisms: None Reported Past Surgical History: Tubal Ligation Past Psychological History: Anxiety, Depression Smoking Status: Never smoker Past Alcohol Use History: None Reported Past Drug Use History: None Reported - Past Family History Mother Family Medical History: Cancer General Exam Limitations: no limitations General appearance: alert, in no apparent distress Head exam: Present: atraumatic, normocephalic, normal inspection Eye exam: Present: normal appearance, PERRL, EOMI. Absent: scleral icterus, conjunctival injection, periorbital swelling ENT exam: Present: normal exam, mucous membranes moist Neck exam: Present: normal inspection. Absent: tenderness, meningismus, lymphadenopathy Respiratory exam: Present: normal lung sounds bilaterally. Absent: respiratory distress, wheezes, rales, rhonchi, stridor Cardiovascular Exam: Present: regular rate, normal rhythm, normal heart sounds. Absent: systolic murmur, diastolic murmur, rubs, gallop, clicks GI/Abdominal exam: Present: soft, normal bowel sounds. Absent: distended, tenderness, guarding, rebound, rigid Extremities exam: Present: normal inspection, full ROM, normal capillary refill. Absent: tenderness, pedal edema, joint swelling, calf tenderness Back exam: Present: normal inspection Neurological exam: Present: alert, oriented X3, CN II-XII intact Psychiatric exam: Present: normal affect, normal mood Skin exam: Present: warm, dry, intact, normal color. Absent: rash Course Vital Signs 02/03/23 02/03/23 19:03 21:41 Temperature 98.5 F Pulse Rate 102 H 70 Respiratory 20 18 Rate Blood Pressure 138/82 131/81 O2 Sat by Pulse 99 98 Oximetry Medical Decision Making - Medical Decision Making Was pt. sent in by a medical professional or institution (, PA, SHIPPING AND RECEIVING ASSISTANT, urgent care, hospital, or [place] health care facility...) When possible be specific @ -No Did you speak to anyone other than the patient for history (EMS, parent, family, police, friend...)? What history was obtained from this source @ -No Did you review nursing and triage notes (agree or disagree)? Why? @ -I reviewed and agree with nursing and triage notes Were old charts reviewed (outside hosp., previous admission, EMS record, old EKG, old radiological studies, urgent care reports/EKG's, [place] health care facility records)? Report findings @ -No old charts were reviewed Differential Diagnosis (chest pain, altered mental status, abdominal pain women, abdominal pain men, vaginal bleeding, weakness, fever, dyspnea, syncope, headache, dizziness, GI bleed, back pain, seizure, CVA, palpatations, mental health, musculoskeletal)? @ -c.diff, gastroenteritis, gi bleed, crohns, ulcerative colitis EKG interpreted by me (3pts min.). @ -yes X-rays interpreted by me (1pt min.). @ -None done CT interpreted by me (1pt min.). @ -yes U/S interpreted by me (1pt. min.). @ -None done What testing was considered but not performed or refused? (CT, X-rays, U/S, labs)? Why? @ -None What meds were considered but not given or refused? Why? @ -None Did you discuss the management of the patient with other professionals (professionals i.e. , PA, SHIPPING AND RECEIVING ASSISTANT, lab, RT, psych nurse, director social, grey percher, teacher, conservation enforcement officer, director of casework services)? Give summary @ -No Was smoking cessation discussed for >3mins.? @ -No Was critical care preformed (if so, how long)? @ -No Were there social determinants of health that impacted care today? How? (Homelessness, low income, unemployed, alcoholism, drug addiction, transportation, low edu. Level, literacy, decrease access to med. care, long-term, rehab)? @ -No Was there de-escalation of care discussed even if they declined (Discuss DNR or withdrawal of care, Hospice)? DNR status @ -No What co-morbidities impacted this encounter? (DM, HTN, Smoking, COPD, CAD, Cancer, CVA, ARF, Chemo, Hep., AIDS, mental health diagnosis, sleep apnea, morbid obesity)? @ -None Was patient admitted / discharged? Hospital course, mention meds given and route, prescriptions, significant lab abnormalities, going to OR and other pertinent info. @ -Upon arrival patient was placed into room 19. Thorough history and physical exam is performed. Laboratory studies are conducted and reviewed. Platelet count 49. Creatinine 1.4. Liver enzymes within normal limits. She was given a liter bolus of normal saline. CT is performed without contrast due to her history of single kidney. CT limited without contrast but demonstrates no signs of obstruction or inflammatory changes. Patient is reevaluated and continues to not have any loose bowel movements. Did discuss results of laboratory studies with her. Would like her laboratory studies rechecked within 1-2 weeks. If she has any spontaneously bleeding she needs to return to the emergency d epartment sooner. She needs to follow-up for colonoscopy. Given contact information for Dr. Watson, Dr. Troncoso and the GI Doctors in [facility]. Patient understood this. She is given written and verbal discharge instructions and discharged home in stable condition Undiagnosed new problem with uncertain prognosis? @ -Yes Drug Therapy requiring intensive monitoring for toxicity (Heparin, Nitro, Insulin, Cardizem)? @ -No Were any procedures done? @ -No Diagnosis/symptom? @ -acute diarrhea, acute abd pain Acute, or Chronic, or Acute on Chronic? @ -acute Uncomplicated (without systemic symptoms) or Complicated (systemic symptoms)? @ -complicated Side effects of treatment? @ -No Exacerbation, Progression, or Severe Exacerbation? @ -No Poses a threat to life or bodily function? How? (Chest pain, [place], [place], pneumonia, PE, COPD, DKA, ARF, appy, cholecystitis, CVA, Diverticulitis, Homicidal, Suicidal, threat to staff... and all critical care pts) @ -No - Lab Data Result diagrams: 02/03/23 20:03 02/03/23 20:03 Lab Results 02/03/23 02/03/23 Range/Units 20:03 20:03 WBC 4.6 (3.8-10.6) k/uL RBC 4.84 (3.80-5.40) m/uL Hgb 14.5 (11.4-16.0) gm/dL Hct 41.0 (34.0-46.0) % MCV 84.7 (80.0-100.0) fL MCH 29.9 (25.0-35.0) pg MCHC 35.4 (31.0-37.0) g/dL RDW 13.8 (11.5-15.5) % Plt Count SHIPPING AND RECEIVING ASSISTANT MPV 8.5 Neutrophils % 64 % Lymphocytes % 29 % Monocytes % 4 % Eosinophils % 1 % Basophils % 0 % Neutrophils # 3.0 (1.3-7.7) k/uL Lymphocytes # 1.4 (1.0-4.8) k/uL Monocytes # 0.2 (0-1.0) k/uL Eosinophils # 0.0 (0-0.7) k/uL Basophils # 0.0 (0-0.2) k/uL Manual Slide Review Performed Sodium 140 (137-145) mmol/L Potassium 4.3 (3.5-5.1) mmol/L Chloride 100 (98-107) mmol/L Carbon Dioxide 28 (22-30) mmol/L Anion Gap 12 mmol/L BUN 20 H (7-17) mg/dL Creatinine 1.41 H (0.52-1.04) mg/dL Est GFR (CKD-EPI)AfAm 44 (>60 ml/min/1.73 sqM) Est GFR (CKD-EPI)NonAf 38 (>60 ml/min/1.73 sqM) Glucose 112 H (74-99) mg/dL Calcium 9.5 (8.4-10.2) mg/dL Total Bilirubin 0.4 (0.2-1.3) mg/dL AST 19 (14-36) U/L ALT 18 (4-34) U/L Alkaline Phosphatase 64 (38-126) U/L Total Protein 7.1 (6.3-8.2) g/dL Albumin 4.5 (3.5-5.0) g/dL Lipase 187 (23-300) U/L Disposition Clinical Impression: Diarrhea, Thrombocytopenia Disposition: HOME SELF-CARE Condition: Stable Instructions (If sedation given, give patient instructions): Acute Diarrhea (ED) Additional Instructions: You need to follow-up with your primary care doctor in 1-2 weeks to have your platelet count rechecked. Should you have any spontaneous nosebleeds, abnormal bruising or bleeding, you should return to the hospital. Avoid aspirin and alcohol. Call and attempt to make an appointment for a colonoscopy. you have been provided with multiple names of GI doctors and surgeons that can perform a colonoscopy. Is patient prescribed a controlled substance at d/c from ED?: No Referrals: Heidy Crabtree MD [STAFF PHYSICIAN] - 1-2 days Jayashree Hsu MD [STAFF PHYSICIAN] - 1-2 days Aakash Nguyen DO [REFERRING] - 1-2 days Time of Disposition: 21:04
[2023-02-03 21:43] VITALS: BP 131/81; PULSE 70; RESP 18
== END 2023-02-03 21:42 | disposition home or self-care (01) ==
LOC: EC 19:02
DX: D69.6 Thrombocytopenia, unspecified (principal); R19.7 Diarrhea, unspecified; I10 Essential (primary) hypertension; F32.A Depression, unspecified; F41.9 Anxiety disorder, unspecified; Z79.82 Long term (current) use of aspirin; Z79.899 Other long term (current) drug therapy; Z88.5 Allergy status to narcotic agent
CPT/HCPCS: 36415; 74176; 80053; 83690; 85025; 96360; 99284

== ENCOUNTER → 2023-02-06 | Outpatient (CLI) | payer MEDICARE ==
--- NOTE | 2023-02-06 20:19 | CT ---
EXAMINATION TYPE: CT abdomen pelvis wo con CT DLP: 926.9 mGycm, Automated exposure control for dose reduction was used. DATE OF EXAM: 02/06/2023 5:53 PM COMPARISON: CT abdomen pelvis most recent from 02/03/2023 CLINICAL INDICATION:Female, 68 years old with history of BENIGN NEOPLASM OF UNSPECIFIED ADRENAL GLAND ; benign neoplasm adrenal gland. TECHNIQUE: Axial CT of the abdomen and pelvis. Sagittal and coronal reformats were created on a [employer] workstation. Contrast used: None Oral contrast used: without Oral Contrast FINDINGS: LOWER CHEST: Unremarkable ABDOMEN LIVER: Large right hepatic cyst measuring up to 4.8 cm. GALLBLADDER AND BILE DUCTS: Unremarkable. PANCREAS: Unremarkable. SPLEEN: Unremarkable. ADRENAL GLANDS: The right adrenal gland appears within normal limits. The left adrenal gland is surgi erendira absent. KIDNEYS AND URETERS: The left kidney appears surgically absent. No soft tissue in the surgical bed. R ight kidney is without hydronephrosis or mass. PELVIS BLADDER: Unremarkable REPRODUCTIVE: Unremarkable. ABDOMEN & PELVIS STOMACH AND BOWEL: No evidence of bowel obstruction. PERITONEUM/RETROPERITONEUM: No evidence of pneumoperitoneum or free fluid. VASCULATURE: No evidence of aortic aneurysm. MUSCULOSKELETAL: No acute osseous abnormalities LYMPH NODES: No gross evidence for lymphadenopathy. SOFT TISSUE/ABDOMINAL WALL: Fat-containing umbilical hernia. IMPRESSION: 1. Surgically absent left adrenal gland and left kidney without evidence of recurrence. No lymphaden opathy. 2. No acute abdominal process.
== END | disposition home or self-care (01) ==
LOC: RADCTMAIN 16:36
PROVIDERS: ATTEND Internal Medicine
DX: D35.00 Benign neoplasm of unspecified adrenal gland (principal); I10 Essential (primary) hypertension; G91.2 (Idiopathic) normal pressure hydrocephalus; Z71.3 Dietary counseling and surveillance
CPT/HCPCS: 74176

== ENCOUNTER → 2023-06-05 | Outpatient (CLI) | payer MEDICARE ==
[2023-06-05 19:58] LABS: Appearance,Urine Clear (Clear); Bilirubin,Urine Negative (Negative); Blood,Urine Negative (Negative); Color,Urine Yellow (Yellow); Ketones,Urine Negative (Negative); Nitrite,Urine Negative (Negative); Specific Gravity,Urine 1.012 (1.001-1.030)
[2023-06-05 20:47] LABS: % Iron Saturation 17.99 (12.00-45.00); ALT 11 U/L (8-44); AST 14 U/L (13-35); Albumin 4.9 d/dL (3.8-4.9); Albumin/Globulin Ratio 2.23 Ratio (1.60-3.17); Alkaline Phosphatase 82 U/L (41-126); Blood Urea Nitrogen 12.6 mg/dL (9.0-27.0); Carbon Dioxide 27.7 mmol/L (21.6-31.8); Chloride 103 mmol/L (96-109); Globulin 2.2 d/dL (1.6-3.3); Glucose 88 mg/dL (70-110); Iron 61 UG/DL (50-170); Magnesium 2.3 mg/dL (1.5-2.4); Phosphorus 4.1 mg/dL (2.4-5.1); Potassium 4.8 mmol/L (3.5-5.5); Sodium 141 mmol/L (135-145); Total Bilirubin 0.4 mg/dL (0.3-1.2); Total Iron Binding Capacity 339 UG/DL (228-460); Total Protein 7.1 d/dL (6.2-8.2)
[2023-06-05 21:34] LABS: HCT 45.1 % (37.2-46.3); HGB 14.8 d/dL (12.0-15.0); MCHC 32.8 d/dL (32.0-37.0); MCV 88.3 FL (80.0-97.0); Mean Platelet Volume 11.4 FL (9.5-12.2); NRBC Per 100 WBC 0 X 10*3/uL (0.00-0.01); Platelet Count 226 X 10*3/uL (140-440); RBC 5.11 X 10*6/uL (4.10-5.20); RDW 13.2 % (11.5-14.5); WBC 6.84 X 10*3/uL (4.50-10.00)
[2023-06-05 22:00] LABS: Microalbumin Creatinine Ratio <13 mg/g Cr (0-30); Urine Creatinine 91.9 mg/dL (28.0-217.0)
== END | disposition home or self-care (01) ==
LOC: LABWHC1 16:07
PROVIDERS: ATTEND Internal Medicine
DX: N25.81 Secondary hyperparathyroidism of renal origin (principal); N18.32 Chronic kidney disease, stage 3b; D63.1 Anemia in chronic kidney disease; N39.0 Urinary tract infection, site not specified; E55.9 Vitamin D deficiency, unspecified; M10.9 Gout, unspecified; R80.9 Proteinuria, unspecified
CPT/HCPCS: 36415; 80053; 81003; 82043; 82306; 82570; 82728; 83540; 83550; 83735; 83970; 84100; 85027

== ENCOUNTER 2023-06-10 17:58 | Emergency (ER) | payer MEDICARE ==
[2023-06-10 18:04] VITALS: BP 122/80; TEMP 97.6
--- NOTE | 2023-06-10 20:09 | ED ---
Psych HPI - General Chief Complaint: Psychiatric Symptoms Stated Complaint: mental health Time Seen by Provider: 06/10/23 19:34 Source: patient Mode of arrival: ambulatory - History of Present Illness Initial Comments: Vision is a 68-year-old female presenting to the emergency room for further evaluation of continued depressed mood despite recent increase in her Zoloft from 100 mg to 150 mg a proximally 1 week ago. She denies any side effects from the medication but just states that her mood continues to be low. She denies any suicidal thoughts, homicidal thoughts, hallucinations or delusions. She reports that she is taking her medications as prescribed. She denies any other complaints or concerns at this time including any chest pain, shortness of breath, abdominal pain, nausea, vomiting, fevers or chills. In addition to her depression history she has past medical history significant for hypertension and hydrocephalus. - Related Data Home Medications Medication Instructions Recorded Confirmed Multivitamins, Thera [Multivitamin 1 tab PO DAILY 05/10/17 06/10/23 (formulary)] Fluticasone Nasal [place] [Flonase 1 spr EA NOSTRIL DAILY 07/15/21 06/10/23 Nasal [place]] NIFEdipine XL [Procardia Xl] 30 mg PO DAILY 06/10/23 06/10/23 Pantoprazole Sodium [Protonix] 40 mg PO DAILY 06/10/23 06/10/23 Sertraline [Zoloft] 150 mg PO DAILY 06/10/23 06/10/23 Allergies Allergy/AdvReac Type Severity Reaction Status Date / Time morphine Allergy Hallucinati Verified 06/10/23 20:11 ons Review of Systems ROS Statement: Those systems with pertinent positive or pertinent negative responses have been documented in the HPI. ROS Other: All systems not noted in ROS Statement are negative. Past Medical History Past Medical History: Hypertension Additional Past Medical History / Comment(s): Hydrocephalus History of Any Multi-Drug Resistant Organisms: None Reported Past Surgical History: Tubal Ligation Additional Past Surgical History / Comment(s): Kidney Past Psychological History: Anxiety, Depression Smoking Status: Never smoker Past Alcohol Use History: None Reported Past Drug Use History: None Reported - Past Family History Mother Family Medical History: Cancer General Exam Limitations: no limitations General appearance: alert, in no apparent distress Head exam: Present: atraumatic, normocephalic, normal inspection Eye exam: Present: normal appearance, PERRL, EOMI. Absent: scleral icterus, conjunctival injection, periorbital swelling ENT exam: Present: normal exam, mucous membranes moist Neck exam: Present: normal inspection, full ROM Respiratory exam: Absent: respiratory distress, accessory muscle use Cardiovascular Exam: Present: regular rate GI/Abdominal exam: Absent: distended Rectal exam: Present: deferred Extremities exam: Present: normal inspection. Absent: pedal edema, joint sw elling Back exam: Present: normal inspection Neurological exam: Present: alert, oriented X3, CN II-XII intact Psychiatric exam: Present: depressed. Absent: homicidal ideation, suicidal ideation Skin exam: Present: warm, dry, intact, normal color. Absent: rash Course Vital Signs 06/10/23 18:02 Temperature 97.6 F Pulse Rate 96 Respiratory 20 Rate Blood Pressure 122/80 O2 Sat by Pulse 99 Oximetry Medical Decision Making - Medical Decision Making Was pt. sent in by a medical professional or institution (, PA, SHOW GIRL, urgent care, hospital, or [facility]...) When possible be specific @ -No Did you speak to anyone other than the patient for history (EMS, parent, family, police, friend...)? What history was obtained from this source @ -No Did you review nursing and triage notes (agree or disagree)? Why? @ -I reviewed and agree with nursing and triage notes Were old charts reviewed (outside hosp., previous admission, EMS record, old EKG, old radiological studies, urgent care reports/EKG's, [facility] records)? Report findings @ -No old charts were reviewed Differential Diagnosis (chest pain, altered mental status, abdominal pain women, abdominal pain men, vaginal bleeding, weakness, fever, dyspnea, syncope, headache, dizziness, GI bleed, back pain, seizure, CVA, palpatations, mental health, musculoskeletal)? @ -Differential Mental Health Depression, anxiety, bipolar, psychosis, schizophrenia, borderline personality, situational depression, adjustment disorder, behavioral disorder, brain tumor, malingering, substance abuse, encephalopathy, medication reaction, dementia, hypothyroidism, degenerative neurologic disorder, lupus.... This is not meant to be all-inclusive list EKG interpreted by me (3pts min.). @ -None done X-rays interpreted by me (1pt min.). @ -None done CT interpreted by me (1pt min.). @ -None done U/S interpreted by me (1pt. min.). @ -None done What testing was considered but not performed or refused? (CT, X-rays, U/S, labs)? Why? @ -None What meds were considered but not given or refused? Why? @ -None Did you discuss the management of the patient with other professionals (professionals i.e. Dr., PA, SHOW GIRL, lab, RT, psych nurse, social worker psychiatric, ui software developer, teacher, security officers and guards, counseling case manager)? Give summary @ -No Was smoking cessation discussed for >3mins.? @ -No Was critical care preformed (if so, how long)? @ -No Were there social determinants of health that impacted care today? How? (Home lessness, low income, unemployed, alcoholism, drug addiction, transportation, low edu. Level, literacy, decrease access to med. care, [facility], rehab)? @ -No Was there de-escalation of care discussed even if they declined (Discuss DNR or withdrawal of care, Hospice)? DNR status @ -No What co-morbidities impacted this encounter? (DM, HTN, Smoking, COPD, CAD, Cancer, CVA, ARF, Chemo, Hep., AIDS, mental health diagnosis, sleep apnea, morbid obesity)? @ -None Was patient admitted / discharged? Hospital course, mention meds given and route, prescriptions, significant lab abnormalities, going to OR and other pertinent info. @ -68-year-old female presenting to the emergency room with concerns regarding continued depression despite recent titration in her antidepressant which she is taking as prescribed. No suicidal thoughts, homicidal thoughts, hallucinations or delusions. Along his remain from patient patient placed in a psychiatric count with sharps and cords removed and cleared from medical standpoint for EPS evaluation with breath alcohol testing 0.00. EPS evaluation completed and patient cleared for discharge home with follow-up with outpatient resources including her psychiatrist and continuation of her current antidepressant medication. Questions and concerns answered. Return parameters to the emergency room discussed. Will discharge home in stable condition with continued outpatient treatment and antidepressant medication to treat her depression advising follow-up with psychiatry. Undiagnosed new problem with uncertain prognosis? @ No Drug Therapy requiring intensive monitoring for toxicity (Heparin, Nitro, Insulin, Cardizem)? @ -No Were any procedures done? @ -No Diagnosis/symptom? @ -Depression Acute, or Chronic, or Acute on Chronic? @ -Acute on chronic Uncomplicated (without systemic symptoms) or Complicated (systemic symptoms)? @ -Uncomplicated Side effects of treatment? @ -No Exacerbation, Progression, or Severe Exacerbation? @ -Exacerbation Poses a threat to life or bodily function? How? (Chest pain, [place], [place], pneumonia, PE, COPD, DKA, ARF, appy, cholecystitis, CVA, Diverticulitis, Homicidal, Suicidal, threat to staff... and all critical care pts) @ -No Case discussed with Dr. Santos Disposition Clinical Impression: Depression Disposition: HOME SELF-CARE Condition: Stable Instructions (If sedation given, give patient instructions): Depression (ED), Suicide Prevention (ED) Additional Instructions: Please continue to take your medications as prescribed. Please follow-up with your psychiatrist and community out patient resources provided by psychiatric services. Please return to the Emergency Department if symptoms worsen or any other concerns. Is patient prescribed a controlled substance at d/c from ED?: No Referrals: Carolyn Werner MD [Primary Care Provider] - 1-2 days Time of Disposition: 22:43
[2023-06-10 23:17] VITALS: PULSE 77; RESP 16
== END 2023-06-10 23:17 | disposition home or self-care (01) ==
LOC: EC 17:58
DX: F32.A Depression, unspecified (principal); I10 Essential (primary) hypertension; F41.9 Anxiety disorder, unspecified; Z79.899 Other long term (current) drug therapy; Z88.5 Allergy status to narcotic agent
CPT/HCPCS: 82075; 99284

== ENCOUNTER → 2024-01-10 | Outpatient (CLI) | payer MEDICARE ==
[2024-01-10 18:04] LABS: HCT 44.7 % (37.2-46.3); HGB 14.4 g/dL (12.0-15.0); MCH 28.6 pg (27.0-32.0); MCHC 32.2 g/dL (32.0-37.0); MCV 88.7 FL (80.0-97.0); Mean Platelet Volume 11.4 FL (9.5-12.2); NRBC Per 100 WBC 0 X 10*3/uL (0.00-0.01); Platelet Count 218 X 10*3/uL (140-440); RBC 5.04 X 10*6/uL (4.10-5.20); RDW 13.3 % (11.5-14.5); WBC 7.88 X 10*3/uL (4.50-10.00)
[2024-01-10 19:15] LABS: % Iron Saturation 20.86 (12.00-45.00); ALT 9 U/L (8-44); AST 11 U/L (13-35); Albumin 4.8 g/dL (3.8-4.9); Albumin/Globulin Ratio 2.18 Ratio (1.60-3.17); Alkaline Phosphatase 89 U/L (41-126); Blood Urea Nitrogen 14.7 mg/dL (9.0-27.0); Calcium 10.1 mg/dL (8.7-10.3); Chloride 101 mmol/L (96-109); Globulin 2.2 g/dL (1.6-3.3); Glucose 114 mg/dL (70-110); Iron 68 UG/DL (50-170); Magnesium 2.6 mg/dL (1.5-2.4); Phosphorus 4.5 mg/dL (2.4-5.1); Potassium 4.7 mmol/L (3.5-5.5); Sodium 141 mmol/L (135-145); Total Bilirubin 0.3 mg/dL (0.3-1.2); Total Iron Binding Capacity 326 UG/DL (228-460); Uric Acid 4.1 mg/dL (2.9-7.7)
== END | disposition home or self-care (01) ==
LOC: LABWHC1 12:13
PROVIDERS: ATTEND Nurse Practitioner Family
DX: N25.81 Secondary hyperparathyroidism of renal origin (principal); N18.32 Chronic kidney disease, stage 3b; D63.1 Anemia in chronic kidney disease; N39.0 Urinary tract infection, site not specified; E55.9 Vitamin D deficiency, unspecified; M10.9 Gout, unspecified; R80.9 Proteinuria, unspecified
CPT/HCPCS: 36415; 80053; 82306; 82728; 83540; 83550; 83735; 83970; 84100; 84550; 85027

== ENCOUNTER → 2024-04-04 | Outpatient (CLI) | payer MEDICARE ==
--- NOTE | 2024-04-07 13:21 | MM ---
Reason for Exam: Screening (asymptomatic). Last mammogram was performed 3 year(s) and 3 month(s) ago. Patient History: Menarche at age 11. First Full-Term at age 16. Postmenopausal. Risk Values: Chela 5 year model risk: 1.3%. NCI Lifetime model risk: 3.5%. Prior Study Comparison: 01/06/2010 Bilateral Screening Mammogram, [facility]. 07/05/2011 Bilateral Screening Mammogram, [facility]. 12/27/2020 Bilateral Screening Mammogram, [facility]. Tissue Density: There are scattered areas of fibroglandular density. Findings: Analyzed By CAD. There is no suspicious group of microcalcifications or new suspicious mass in either breast. Overall Assessment: Benign, BI-RAD 2 Management: Screening Mammogram of both breasts in 1 year. . Patient should continue monthly self-breast exams. A clinical breast exam by your physician is recommended on an annual basis. This exam should not preclude additional follow-up of suspicious palpable abnormalities. Note on Chela scores and lifetime risk: 1. A Chela score greater than 3% is considered moderate risk. If this is the case, consider specialist referral to assess eligibility for a risk reducing agent. 2. If overall lifetime risk for the development of breast cancer is 20% or higher, the patient may qualify for future screening with alternating mammogram and breast MRI. Electronically signed and approved by: John Delatorre M.D. Radiologis
== END | disposition home or self-care (01) ==
LOC: RADMAMWWP 13:18
PROVIDERS: ATTEND Family Medicine
DX: Z12.31 Encounter for screening mammogram for malignant neoplasm of breast (principal); Z78.0 Asymptomatic menopausal state
CPT/HCPCS: 77063; 77067

== ENCOUNTER → 2024-04-04 | Outpatient (CLI) | payer MEDICARE | END | disposition home or self-care (01) | LOC: RADBDWWP 13:16 | PROVIDERS: ATTEND Family Medicine | DX: Z78.0 Asymptomatic menopausal state (principal) ==

== ENCOUNTER → 2024-04-17 | Outpatient (CLI) | payer MEDICARE ==
--- NOTE | 2024-04-19 18:57 | CT ---
EXAMINATION TYPE: CT abdomen pelvis wo con DATE OF EXAM: 04/17/2024 COMPARISON: 02/06/2023 INDICATION: f/u nephrectomy DLP: 968 mGycm, Automated exposure control for dose reduction was used. CONTRAST: 0 mL of Isovue 300. Study performed without Oral Contrast TECHNIQUE: Axial images were obtained from above the diaphragm to the pubic rami in the axial plane a t 5 mm thick sections. Reconstructed images are reviewed on the computer in the coronal plane. FINDINGS: Limited CT sections are obtained the lung bases. The lung bases are clear. CT ABDOMEN: Liver: Multiple hepatic cysts remain present. Spleen: Normal Pancreas: Normal Adrenal glands: Right adrenal gland is normal. Left adrenal gland is not identified. Gallbladder: Normal Kidneys: Left kidney is surgically absent. There is a punctate cortical renal calcification in the mi d to inferior medial right kidney.. No hydronephrosis is present. No cysts are present. Aorta: Vascular calcification is within the aorta. Inferior vena cava: Normal. CT PELVIS: Loops of bowel within the abdomen and pelvis are normal. Fecal debris is within the colon. No dilate d loops of bowel are evident. This study is bilateral contrast limiting bowel evaluation. Appendix: Not identified. No dilated tubular structure inflammatory changes. Urinary bladder: Normal. Genitourinary structures: Uterus appears retroverted. Adnexa are unremarkable Osseous structures: No suspicious lytic or sclerotic lesions. No expansile lesions evident. IMPRESSION: 1. No suspicious changes to suggest recurrent left renal masses. No metastatic changes identified. 2. Multiple stable appearing hepatic cyst.
== END | disposition home or self-care (01) ==
LOC: RADCTMAIN 11:50
PROVIDERS: ATTEND Urology
DX: C74.92 Malignant neoplasm of unspecified part of left adrenal gland (principal); K76.89 Other specified diseases of liver
CPT/HCPCS: 74176

== ENCOUNTER → 2024-04-17 | Outpatient (CLI) | payer MEDICARE ==
[2024-04-17 19:16] LABS: ALT 11 U/L (8-44); AST 16 U/L (13-35); Albumin 4.5 g/dL (3.8-4.9); Albumin/Globulin Ratio 2.14 Ratio (1.60-3.17); Alkaline Phosphatase 82 U/L (41-126); BUN/Creat Ratio 12.92 Ratio (12.00-20.00); Blood Urea Nitrogen 16.8 mg/dL (9.0-27.0); Calcium 9.9 mg/dL (8.7-10.3); Carbon Dioxide 27.1 mmol/L (21.6-31.8); Chloride 104 mmol/L (96-109); Globulin 2.1 g/dL (1.6-3.3); Glucose 97 mg/dL (70-110); Potassium 4.4 mmol/L (3.5-5.5); Sodium 143 mmol/L (135-145); Total Bilirubin 0.3 mg/dL (0.3-1.2); Total Protein 6.6 g/dL (6.2-8.2)
== END | disposition home or self-care (01) ==
LOC: LABWHC1 12:21
PROVIDERS: ATTEND Urology
DX: C74.92 Malignant neoplasm of unspecified part of left adrenal gland (principal)
CPT/HCPCS: 36415; 80053; 83835

== ENCOUNTER → 2024-06-11 | Outpatient (CLI) | payer MEDICARE | END | disposition home or self-care (01) | LOC: LABPRL 10:34 | PROVIDERS: ATTEND Nurse Practitioner Family | DX: Z00.00 Encounter for general adult medical examination without abnormal findings (principal); I10 Essential (primary) hypertension; R53.83 Other fatigue | CPT/HCPCS: 80053; 80061; 82306; 82728; 83036; 83540; 83550; 84443; 85027 ==

== ENCOUNTER 2025-05-10 21:20 | Emergency (ER) | payer MEDICARE ==
[2025-05-10 21:37] VITALS: PULSE 76; TEMP 98.7
--- NOTE | 2025-05-10 22:48 | ED ---
General Adult HPI - General Source: patient, RN notes reviewed Mode of arrival: ambulatory Limitations: no limitations <Ernesto Moss - Last Filed: 05/10/25 22:48> - General Source: patient, RN notes reviewed, old records reviewed Mode of arrival: ambulatory Limitations: no limitations - History of Present Illness -: unknown Consistency: constant Improves with: none Worsens with: cold therapy Associated Symptoms: denies other symptoms Treatments Prior to Arrival: none <Johny Shoemaker - Last Filed: 05/11/25 02:30> - General Chief complaint: Psychiatric Symptoms Stated complaint: mental issues Time Seen by Provider: 05/10/25 21:31 - History of Present Illness Initial comments: Quick note: This is a 70-year-old female here for psychiatric reasons. Patient did not wish to speak in the waiting room. (Ernesto Moss) This is a 70 female presenting for psychiatric evaluation. (Johny Shoemaker) - Related Data Home Medications Medication Instructions Recorded Confirmed Multivitamins, Thera [Multivitamin 1 tab PO DAILY 05/10/17 06/10/23 (formulary)] Fluticasone Nasal [place] [Flonase 1 spr EA NOSTRIL DAILY 07/15/21 06/10/23 Nasal [place]] NIFEdipine XL [Procardia Xl] 30 mg PO DAILY 06/10/23 06/10/23 Pantoprazole Sodium [Protonix] 40 mg PO DAILY 06/10/23 06/10/23 Sertraline [Zoloft] 150 mg PO DAILY 06/10/23 06/10/23 Allergies Allergy/AdvReac Type Severity Reaction Status Date / Time morphine Allergy Hallucinati Verified 05/10/25 21:37 ons Review of Systems ROS Other: All systems not noted in ROS Statement are negative. <Ernesto Moss - Last Filed: 05/10/25 22:48> ROS Other: All systems not noted in ROS Statement are negative. <Johny Shoemaker - Last Filed: 05/11/25 02:30> ROS Statement: Those systems with pertinent positive or pertinent negative responses have been documented in the HPI. Past Medical History Past Medical History: Hypertension Additional Past Medical History / Comment(s): Hydrocephalus History of Any Multi-Drug Resistant Organisms: None Reported Past Surgical History: Tubal Ligation Additional Past Surgical History / Comment(s): Kidney Past Psychological History: Anxiety, Depression Smoking Status: Never smoker Past Alcohol Use History: None Reported Past Drug Use History: None Reported - Past Family History Mother Family Medical History: Cancer <Ernesto Moss - Last Filed: 05/10/25 22:48> General Exam Limitations: no limitations <Ernesto Moss - Last Filed: 05/10/25 22:48> General appearance: alert, in no apparent distress Head exam: Present: atraumatic, normocephalic, normal inspection Eye exam: Present: normal appearance, PERRL, EOMI. Absent: scleral icterus, conjunctival injection, periorbital swelling ENT exam: Present: normal exam, mucous membranes moist Neck exam: Present: normal inspection. Absent: tenderness, meningismus, lymphadenopathy Respiratory exam: Present: normal lung sounds bilaterally. Absent: respiratory distress, wheezes, rales, rhonchi, stridor Cardiovascular Exam: Present: regular rate, normal rhythm, normal heart sounds. Absent: systolic murmur, diastolic murmur, rubs, gallop, clicks GI/Abdominal exam: Present: soft, normal bowel sounds. Absent: distended, tenderness, guarding, rebound, rigid Extremities exam: Present: normal inspection, full ROM, normal capillary refill. Absent: tenderness, pedal edema, joint swelling, calf tenderness Back exam: Present: normal inspection Neurological exam: Present: alert, oriented X3, CN II-XII intact Psychiatric exam: Present: normal affect, normal mood Skin exam: Present: warm, dry, intact, normal color. Absent: rash <Johny Shoemaker - Last Filed: 05/11/25 02:30> - General Exam Comments Initial Comments: Visual Physical Exam Vital signs reviewed General: Well-appearing, nontoxic, no acute distress. Head: Normocephalic, atraumatic Eyes: PERRLA, EOMI ENT: Airway patent Chest: Nonlabored breathing Skin: No visual rash, normal skin tone Neuro: Alert and oriented 3 Musculoskeletal: No gross abnormalities (Ernesto Moss) Course <Johny Shoemaker - Last Filed: 05/11/25 02:30> Vital Signs 05/10/25 05/11/25 21:32 01:50 Temperature 98.7 F Pulse Rate 76 76 Respiratory 18 16 Rate Blood Pressure 128/76 118/73 O2 Sat by Pulse 96 97 Oximetry - Reevaluation(s) Reevaluation #1: 05/10/25 23:32 Medical records reviewed (Johny Shoemaker) Reevaluation #2: 05/10/25 23:32 Medically cleared for psychiatric evaluation (Johny Shoemaker) Reevaluation #3: Was pt. sent in by a medical professional or institution ([facility], [facility], urgent care, hospital, or [facility]...) When possible be specific @ -no Did you speak to anyone other than the patient for history (EMS, parent, family, police, friend...)? What history was obtained from this source @ -no Did you review nursing and triage notes (agree or disagree)? Why? @ -agree Are old charts reviewed (outside hosp., previous admission, EMS record, old EKG, old radiological studies, urgent care reports/EKG's, [facility] records)? Rep ort findings @ -yes Differential Diagnosis (chest pain, altered mental status, abdominal pain women, abdominal pain men, vaginal bleeding, weakness, fever, dyspnea, syncope, headache, dizziness, GI bleed, back pain, seizure, CVA, palpatations, mental health, musculoskeletal)? @ -prior EKG interpreted by me (3pts min.). @ -no X-rays interpreted by me (1pt min.). @ -no CT interpreted by me (1pt min.). @ -no U/S interpreted by me (1pt. min.). @ -no What testing was considered but not performed or refused? (CT, X-rays, U/S, labs)? Why? @ -none What meds were considered but not given or refused? Why? @ -none Did you discuss the management of the patient with other professionals (professionals i.e. [facility], [facility], lab, RT, psych nurse, social economist, legal executive assistant, teacher, hospital chief financial officer, nurse outreach case manager)? Give summary @ -no Was smoking cessation discussed for >3mins.? @ -no Was critical care preformed (if so, how long)? @ -no Were there social determinants of health that impacted care today? How? (Homelessness, low income, unemployed, alcoholism, drug addiction, transportation, low edu. Level, literacy, decrease access to med. care, fpc, rehab)? @ -none Was there de-escalation of care discussed even if they declined (Discuss DNR or withdrawal of care, Hospice)? DNR status @ -no What co-morbidities impacted this encounter? (DM, HTN, Smoking, COPD, CAD, Cancer, CVA, ARF, Chemo, Hep., AIDS, mental health diagnosis, sleep apnea, morbid obesity)? @ -none Was patient admitted / discharged? Hospital course, mention meds given and route, prescriptions, significant lab abnormalities, going to OR and other pertinent info. @ - 70 female to the ER for evaluation of acute psychosis. Major depression patient can be discharged home Discharge Undiagnosed new problem with uncertain prognosis? @ -no Drug Therapy requiring intensive monitoring for toxicity (Heparin, Nitro, Insulin, Cardizem)? @ -no Were any procedures done? @ -no Diagnosis/symptom? @ - Acute, or Chronic, or Acute on Chronic? @ -Acute Uncomplicated (without systemic symptoms) or Complicated (systemic symptoms)? @ -Complicated Side effects of treatment? @ -no Exacerbation, Progression, or Severe Exacerbation? @ -exacerbation Poses a threat to life or bodily function? How? (Chest pain, [place], [place], pneumonia, PE, COPD, DKA, ARF, appy, cholecystitis, CVA, Diverticulitis, Homicidal, S uicidal, threat to staff... and all critical care pts) @ -yes extremes of age (Johny Shoemaker) Reevaluation #4: Differential Mental Health Depression, anxiety, bipolar, psychosis, schizophrenia, borderline personality, situational depression, adjustment disorder, behavioral disorder, brain tumor, malingering, substance abuse, encephalopathy, medication reaction, dementia, hypothyroidism, degenerative neurologic disorder, lupus.... This is not meant to be all-inclusive list (Johny Shoemaker) Medical Decision Making <Ernesto Moss - Last Filed: 05/10/25 22:48> <Johny Shoemaker - Last Filed: 05/11/25 02:30> - Medical Decision Making I completed the quick note portion of this chart signed BETTINA Low (Ernesto Moss) 70 female to the ER for evaluation of acute psychosis. Major depression patient can be discharged home (Johny Shoemaker) - Lab Data Lab Results 05/11/25 05/11/25 Range/Units 00:17 00:17 Urine Color Colorless Urine Appearance Clear (Clear) Urine pH 5.5 (5.0-8.0) Ur Specific Delta 1.005 (1.001-1.035) Urine Protein Negative (Negative) Urine Glucose (UA) Negative (Negative) Urine Ketones Negative (Negative) Urine Blood Negative (Negative) Urine Nitrite Negative (Negative) Urine Bilirubin Negative (Negative) Urine Urobilinogen <2.0 (<2.0) mg/dL Ur Leukocyte Esterase Negative (Negative) Urine Opiates Screen Not Detected (NotDetected) Ur Oxycodone Screen Not Detected (NotDetected) Urine Methadone Screen Not Detected (NotDetected) Ur Barbiturates Screen Not Detected (NotDetected) U Tricyclic Antidepress Not Detected (NotDetected) Ur Phencyclidine Scrn Not Detected (NotDetected) Ur Amphetamines Screen Not Detected (NotDetected) U Methamphetamines Scrn Not Detected (NotDetected) U Benzodiazepines Scrn Not Detected (NotDetected) Urine Cocaine Screen Not Detected (NotDetected) U Marijuana (THC) Screen Not Detected (NotDetected) Disposition <Ernesto Moss - Last Filed: 05/10/25 22:48> Is patient prescribed a controlled substance at d/c from ED?: No <Johny Shoemaker - Last Filed: 05/11/25 02:30> Clinical Impression: Acute anxiety, Depression Disposition: HOME SELF-CARE Condition: Fair Instructions (If sedation given, give patient instructions): Depression (ED) Referrals: Carolyn Werner MD [Primary Care Provider] - 1-2 days
[2025-05-11 01:09] LABS: Barbiturate Screen,Urine Not Detected (NotDetected); Benzodiazepines Screen,Urine Not Detected (NotDetected); Opiate Screen,Urine Not Detected (NotDetected); Oxycodone Screen, Urine Not Detected (NotDetected); Phencyclidine Screen,Urine Not Detected (NotDetected); Tricyclic Antidepressant,Urine Not Detected (NotDetected); Urn Cannabinoid Scrn Not Detected (NotDetected)
[2025-05-11 01:52] VITALS: BP 118/73; RESP 16
[2025-05-11 02:14] LABS: Bilirubin,Urine Negative (Negative); Blood,Urine Negative (Negative); Color,Urine Colorless; Glucose,Urine (UA) Negative (Negative); Ketones,Urine Negative (Negative); Leukocyte Esterase,Urine Negative (Negative); Nitrite,Urine Negative (Negative); PH, Urine 5.5 (5.0-8.0); Protein,Urine Negative (Negative); Specific Gravity,Urine 1.005 (1.001-1.035); Urobilinogen,Urine <2.0 mg/dL (<2.0)
== END 2025-05-11 01:59 | disposition home or self-care (01) ==
LOC: EC 21:20
DX: F32.A Depression, unspecified (principal); F41.9 Anxiety disorder, unspecified; Z88.5 Allergy status to narcotic agent
CPT/HCPCS: 80306; 81003; 82075; 99285